=== PATIENT | male | born 1975 | race Caucasian/White ===

== ENCOUNTER 2017-11-30 14:22 | Emergency (ER) | payer SELFPAY ==
[2017-11-30] VITALS (14 sets, daily range): BP systolic 109–141; BP diastolic 69–87; PULSE 66–88; RESP 11–19; TEMP 36.2; O2SAT 94–100; BMI 23.9
--- NOTE | 2017-11-30 14:31 | DI.RAD.S_ITS ---
PROCEDURE: XR SHOULDER RT MIN 2V INDICATIONS: history of right shoulder dislocation TECHNIQUE: 2 views of the shoulder were acquired. COMPARISON: None. FINDINGS: Bones: There is anterior-inferior dislocation glenohumeral joint. No gross acute fracture is seen. No suspicious bony lesions. Visualized ribs appear intact. Soft tissues: No suspicious soft tissue calcifications. IMPRESSION: Anterior-inferior dislocation at the glenohumeral joint. Dictated by: Santo Antoine M.D. on 11/30/2017 at 15:16 Approved by: Santo Antoine M.D. on 11/30/2017 at 15:18
--- NOTE | 2017-11-30 16:56 | ED.UPPEXIN ---
HPI - Extremity Injury (Upper) <ROBERTO Toscano - Last Filed: 11/30/17 22:15> General Chief Complaint: Extremity Injury, Upper Stated Complaint: DISLOCATED RT SGOULDER Time Seen by Provider: 11/30/17 17:06 Source: patient Mode of arrival: ambulatory Limitations: no limitations History of Present Illness HPI narrative: 42-year-old male history of right shoulder dislocation is everyday smoker here for complaint of pain to his right shoulder. he states that he was throwing a boat came [place] went to throw his head on to the shore and when he threw his had felt pain to his right shoulder. He reports decreased ability to move the right shoulder this timeframe due to pain. He believes his shoulder is dislocated. He denies any direct trauma to the shoulder. He denies any other concerns or complaints. Related Data Allergies Allergy/AdvReac Type Severity Reaction Status Date / Time No Known Drug Allergies Allergy Verified 11/30/17 17:19 Review of Systems <ROBERTO Toscano - Last Filed: 11/30/17 22:15> Review of Systems All systems reviewed & are unremarkable except as noted in HPI and below Constitutional Denies chills, Denies fever(s), Denies lethargy and Denies weakness Eyes Denies change in vision, Denies eye discharge, Denies irritation and Denies loss of vision ENT Ears, Nose, Mouth, and Throat: Denies change in voice, Denies neck pain and Denies sore throat Cardiovascular Denies chest pain, Denies irregular heart rhythm, Denies lightheadedness, Denies palpitations, Denies dyspnea, Denies dyspnea on exertion and Denies orthopnea Respiratory Denies cough, Denies dyspnea, Denies dyspnea on exertion and Denies wheezing Gastrointestinal Gastrointestinal: Denies abdominal pain, Denies change in bowel habits, Denies diarrhea, Denies nausea and Denies vomiting Genitourinary Denies hematuria, Denies flank pain, Denies urinary incontinence and Denies urinary urgency Musculoskeletal Denies neck pain Comments: Right shoulder pain Neurologic Denies confusion, Denies loss of vision and Denies weakness Psychiatric Denies anxiety, Denies confusion, Denies depression, Denies homicidal ideation and Denies suicidal ideation Endocrine Denies palpitations Hematologic/Lymphatic Denies easy bruising Allergic/Immunologic Denies wheezing Exam <ROBERTO Toscano - Last Filed: 11/30/17 22:15> Initial Vital Signs Initial Vital Signs: Vital Signs Temperature 97.1 F L 11/30/17 14:25 Pulse Rate 69 11/30/17 14:25 Respiratory Rate 18 11/30/17 14:25 Blood Pressure 113/75 11/30/17 14:25 Pulse Oximetry 97 11/30/17 14:25 Const General: cooperative and well developed Nutritional Appearance: well nourished Orientation: alert, awake, oriented x3 and not confused HENWV Mouth: oral mucosae normal and moist mucous membranes Eyes General: appearance normal, both eyes and all related structures Conjunctivae: conjunctivae normal Sclera: sclerae normal Pupils: PERRL EOM: EOM intact bilaterally Resp Effort & Inspection: normal respiratory effort, able to speak in complete sentences, no respiratory distress and no use of accessory muscles Auscultation: clear to auscultation bilaterally, no rales, no rhonchi and no wheezes Cardio Rate: regular rate Rhythm: regular rhythm Heart Sounds: no click, no gallops, no murmurs and no rubs Pulses: normal peripheral pulses Skin General: no rashes or lesions noted, No jaundice and No petechiae Neuro General: alert, oriented x3, gait normal and no focal motor deficits Speech: speech normal Extrem Other: right shoulder a symmetric with the left shoulder. on palpation appears that humeral head is anterior/ medially dislocated. Distal sensation is intact. Distal pulses are intact. Distal range of motion is intact. <Tom Urena DO - Last Filed: 11/30/17 23:20> Initial Vital Signs Initial Vital Signs: Vital Signs Temperature 97.1 F L 11/30/17 14:25 Pulse Rate 69 11/30/17 14:25 Respiratory Rate 18 11/30/17 14:25 Blood Pressure 113/75 11/30/17 14:25 Pulse Oximetry 97 11/30/17 14:25 Procedures <ROBERTO Toscano - Last Filed: 11/30/17 22:15> Orthopedic Joint Reduction Joint #1: Time Out Performed: Yes Side: right Joint Reduction Location: shoulder Analgesia: procedural sedation Local Anesthesia: other anesthetic Shoulder Technique Used (if applicable): external rotation Post-reduction neuro exam: intact Post-reduction vascular: intact Post Reduction X-Ray Obtained: Yes Post Reduction X-Ray Results: reduced Splint Applied: Yes Patient Tolerated Procedure: Well Course <ROBERTO Toscano - Last Filed: 11/30/17 22:15> Orders Ordered: ED Orders 11/30/17 14:31 XR shoulder RT min 2V Stat 11/30/17 19:46 XR shoulder RT min 2V Stat Discontinued Medications Hydromorphone HCl (Dilaudid) 1 mg IV NOW ONE Stop: 11/30/17 17:11 Last Admin: 11/30/17 17:23 Dose: 1 mg Hydromorphone HCl (Dilaudid) 1 mg IV NOW ONE Stop: 11/30/17 18:23 Last Admin: 11/30/17 18:54 Dose: 1 mg Lorazepam (Ativan) 1 mg IV NOW ONE Stop: 11/30/17 17:11 Last Admin: 11/30/17 17:23 Dose: 1 mg Ondansetron HCl (Zofran) 4 mg IV NOW ONE Stop: 11/30/17 17:28 Last Admin: 11/30/17 18:54 Dose: 4 mg Propofol (Diprivan) 140 mg IV NOW ONE Stop: 11/30/17 19:48 Last Admin: 11/30/17 19:51 Dose: 140 mg Vital Signs - 8 hr 11/30/17 17:40 11/30/17 18:52 11/30/17 19:54 Pulse Rate 81 78 88 Respiratory Rate 19 16 15 Blood Pressure Blood Pressure [Left Arm] 122/87 141/75 H Pulse Oximetry 94 97 11/30/17 22:05 Pulse Rate 68 Respiratory Rate 12 Blood Pressure 128/73 Blood Pressure [Left Arm] Pulse Oximetry 95 <Tom Urena DO - Last Filed: 11/30/17 23:20> Orders Ordered: ED Orders 11/30/17 14:31 XR shoulder RT min 2V Stat 11/30/17 19:46 XR shoulder RT min 2V Stat Discontinued Medications Hydromorphone HCl (Dilaudid) 1 mg IV NOW ONE Stop: 11/30/17 17:11 Last Admin: 11/30/17 17:23 Dose: 1 mg Hydromorphone HCl (Dilaudid) 1 mg IV NOW ONE Stop: 11/30/17 18:23 Last Admin: 11/30/17 18:54 Dose: 1 mg Lorazepam (Ativan) 1 mg IV NOW ONE Stop: 11/30/17 17:11 Last Admin: 11/30/17 17:23 Dose: 1 mg Ondansetron HCl (Zofran) 4 mg IV NOW ONE Stop: 11/30/17 17:28 Last Admin: 11/30/17 18:54 Dose: 4 mg Propofol (Diprivan) 140 mg IV NOW ONE Stop: 11/30/17 19:48 Last Admin: 11/30/17 19:51 Dose: 140 mg Vital Signs - 8 hr 11/30/17 17:40 11/30/17 18:52 11/30/17 19:54 Pulse Rate 81 78 88 Respiratory Rate 19 16 15 Blood Pressure Blood Pressure [Left Arm] 122/87 141/75 H Pulse Oximetry 94 97 11/30/17 22:05 Pulse Rate 68 Respiratory Rate 12 Blood Pressure 128/73 Blood Pressure [Left Arm] Pulse Oximetry 95 MDM - Extremity Injury (Upper) <ROBERTO Toscano - Last Filed: 11/30/17 22:15> Imaging Data Post reduction right shoulder : Radiologist's impression: [place] [address] XRay Report Signed Patient: Kartik ConklinMR#: [id number] : 1975Acct:[id number] Age/Sex: 42 / MDate of Service: 11/30/17 Loc: Accession Number: [id number] Procedure: XR shoulder RT min 2V Ordering Provider: Dustin Edward PROCEDURE: XR SHOULDER RT MIN 2V INDICATIONS: post reduction film please. TECHNIQUE: 2 views of the shoulder were acquired. COMPARISON: [facility], , XR SHOULDER RT MIN 2V, 11/30/2017, 14:39. FINDINGS: Bones: Interval reduction of the previously described right anterior inferior shoulder dislocation, with the right glenohumeral joint now anatomic in alignment. No acute fracture identified. Soft tissues: No suspicious soft tissue calcifications. IMPRESSION: Interval reduction of the right anterior-inferior shoulder dislocation, with the right glenohumeral joint now in anatomic alignment. No acute shoulder fracture identified. Dictated by: Suman Burnette M.D. on 11/30/2017 at 21:44 Approved by: Suman Burnette M.D. on 11/30/2017 at 21:47 right shoulder: Radiologist's impression: [address] [address] XRay Report Signed Patient: Kartik Conklin#: [id number] : 1975Acct:[id number] Age/Sex: 42 / MDate of Service: 11/30/17 Loc: ED Accession Number: [id number] Procedure: XR shoulder RT min 2V Ordering Provider: Dustin Edward PROCEDURE: XR SHOULDER RT MIN 2V INDICATIONS: history of right shoulder dislocation TECHNIQUE: 2 views of the shoulder were acquired. COMPARISON: None. FINDINGS: Bones: There is anterior-inferior dislocation glenohumeral joint. No gross acute fracture is seen. No suspicious bony lesions. Visualized ribs appear intact. Soft tissues: No suspicious soft tissue calcifications. IMPRESSION: Anterior-inferior dislocation at the glenohumeral joint. Dictated by: Santo Antoine M.D. on 11/30/2017 at 15:16 Approved by: Santo Antoine M.D. on 11/30/2017 at 15:18 [facility] Narrative Medical decision making narrative: X-ray of right shoulder was obtained and shows anterior dislocation of the right shoulder. Attempted shoulder manipulation with Dilaudid and Ativan given was able to get shoulder to reduce. Dr urena Provided sedation via propofol and was able to reduce the shoulder using external rotation and traction. x-ray of the shoulder post reduction shows successful reduction. Patient states feels much better. Patient tolerated procedure well. patient is placed in splint for comfort and support. [id number] ibuprofen as needed for any discomfort. Follow up with primary care provider. Return emergency room for worsening symptoms. Discharge Plan Departure Patient Disposition: Home Clinical Impression: Anterior shoulder dislocation Discharge Date/Time: 11/30/17 22:05 Interventions: ED Discharge Assessment Last Done: 11/30/17 22:05 Instructions: DI for Shoulder Dislocation Activity Restrictions/Additional Instructions: initial x-ray indicated shoulder dislocation. Shoulder was reduced and was put back into the socket. Repeat x-ray shows that shoulder is back in place properly. Use [id number] Tylenol or Motrin as needed for any discomfort. Wear splint for comfort and support for 1 week. Follow up with her primary care provider next week for re-evaluation. For any worsening symptoms return to the emergency room. Rest area. Referrals: [facility] [Provider Group] <Tom [place], DO - Last Filed: 11/30/17 23:20> Cosign ED Attending Mikelature Attestation: I was immediately available in the department for consultation. Documentation has been reviewed. I agree with assessment and plan.
[2017-11-30] MEDS: LORazepam 2 MG/ML SYRINGE 1 MG IV (17:23)
[2017-11-30] MEDS: HYDROMORPHONE 1 MG INJ IV ×2 (17:23→18:54)
--- NOTE | 2017-11-30 17:38 | PC.NURSE ---
rt shoulder pain after threw my hat like a frisbee, obvious deformity, reports history of dislocation to same ext >10yrs ago, distal cms intact
[2017-11-30] MEDS: ONDANSETRON 4 MG/2 ML INJ IV (18:54)
--- NOTE | 2017-11-30 19:46 | DI.RAD.S_ITS ---
PROCEDURE: XR SHOULDER RT MIN 2V INDICATIONS: post reduction film please. TECHNIQUE: 2 views of the shoulder were acquired. COMPARISON: [facility], , XR SHOULDER RT MIN 2V, 11/30/2017, 14:39. FINDINGS: Bones: Interval reduction of the previously described right anterior inferior shoulder dislocation, with the right glenohumeral joint now anatomic in alignment. No acute fracture identified. Soft tissues: No suspicious soft tissue calcifications. IMPRESSION: Interval reduction of the right anterior-inferior shoulder dislocation, with the right glenohumeral joint now in anatomic alignment. No acute shoulder fracture identified. Dictated by: Suman Burnette M.D. on 11/30/2017 at 21:44 Approved by: Suman Burnette M.D. on 11/30/2017 at 21:47
[2017-11-30] MEDS: PROPOFOL 200 MG/20 ML VIAL 140 MG IV (19:51)
== END 2017-11-30 22:05 | disposition home or self-care (01) ==
PROVIDERS: Emergency Provider Nurse Practitioner Family
DX: S43.016A Anterior dislocation of unspecified humerus, initial encounter (principal); X50.9XXA Other and unspecified overexertion or strenuous movements or postures, initial encounter; Y93.16 Activity, rowing, canoeing, kayaking, rafting and tubing
CPT/HCPCS: 23655; 73030; 94770; 96374; 96375; 96376; 99152; 99284; 99285; J1170; J2060; J2405; J2704

== ENCOUNTER 2021-05-13 14:28 | Emergency (ER) | payer OTHER, SELFPAY ==
[2021-05-13 14:25] VITALS: BP 124/81; PULSE 110; RESP 24; TEMP 36.6; O2SAT 100
--- NOTE | 2021-05-13 14:51 | PC.NURSE ---
unable to doppler or palpate a left dorsalis pedis pulse. able to palpate a left posterior tibial pulse able to palpate a right dorsalis pedis pulse
--- NOTE | 2021-05-13 15:04 | ED.SKABFB ---
HPI - Skin/Abscess/Foreign Bdy General Chief complaint: Skin/Abscess/Foreign Body Stated complaint: arterial wound controlled with pressure Time Seen by Provider: 05/13/21 14:41 Source: patient and EMS Mode of arrival: EMS History of Present Illness HPI narrative: Patient is a 46-year-old male who presents with wound to his left leg. It was squirting blood and bleeding quite a lot. EMS reports that they put tourniquet on a pressure dressing. Patient states he has been cleaning water out of a basement he felt a prick on his leg he is not sure what it was and then felt that his leg was wet. Apparently a lot of blood loss at the scene. Related Data Allergies Allergy/AdvReac Type Severity Reaction Status Date / Time No Known Drug Allergies Allergy Verified 11/30/17 17:19 Review of Systems Review of Systems Narrative: GENERAL: Denies chills,fever HEENT: Denies throat pain RESPIRATORY: Denies dyspnea, cough, wheezing CARDIOVASCULAR: Denies chest pain, palpitations GASTROINTESTINAL: Denies nausea, vomiting MUSCULOSKELETAL: Denies extremity pain, injury SKIN: See HPI NEUROLOGIC: Denies weakness, dizziness, headache, numbness 8 point review of systems is negative except for those stated above and HPI Patient History Social History Smoking Status: Current every day smoker Smoking Status: Current every day smoker alcohol intake frequency: 0-2 drinks per day Substance Use Type: does not use Exam Initial Vital Signs Initial Vital Signs: Vital Signs Temperature 98 F 05/13/21 14:25 Pulse Rate 110 H 05/13/21 14:25 Respiratory Rate 24 05/13/21 14:25 Blood Pressure 124/81 05/13/21 14:25 Pulse Oximetry 100 05/13/21 14:25 GENERAL: Well-appearing, well-nourished and in no acute distress. CARDIOVASCULAR: peripheral pulses in tact, cap refill <2 sec RESPIRATORY: No respiratory distress, speaks in full sentences without difficulty EXTREMITIES: Normal range of motion, no clubbing or edema. Neurovascularly intact Decreased pulse left foot NEUROLOGICAL: Cranial nerves II through XII grossly intact. Normal gait and speech. SKIN: Puncture wound noted left leg lateral calf, pressure dressing removed blood shot across the room to the wall, dark blood, tourniquet removed blood no longer pulsatile but quite excessive bleeding Foot also appears wet [facility] Procedures Laceration Repair Laceration 1: Size (cm): 0.25 Description: other (pinpoint) Local Anesthetic: lidocaine 1% and with epi Amount of anesthesia used (mL): 5 Skin layer closed with: nylon Size (cm): 4-0 Number of sutures: 1 Course Vital Signs Vital signs: Vital Signs - 8 hr 05/13/21 14:25 05/13/21 15:15 Temperature 98 F Pulse Rate 110 H 98 H Respiratory Rate 24 18 Blood Pressure 124/81 138/87 Pulse Oximetry 100 95 MDM - Skin/Abscess/Foreign Bdy MDM Narrative Medical decision making narrative: Patient had a very small puncture wound with quite a bit of bleeding. He was controlled with lidocaine with epi and suture. Tourniquet was removed than 10 minutes of arrival to the emergency department. Before discharge I was able to palpate a pulse in his left lower extremity without any difficulty and it was marked. At this time no need for any further imaging he has good peripheral circulation. Discharge Plan Departure Patient Disposition: Home Clinical Impression: Laceration Activity Restrictions/Additional Instructions: *You have been diagnosed with left leg laceration *What to do: Have your sutures removed in about 5 days. Keep clean and dry with soap and water Please try to dry her feet out said they do not get infected *Continue to take medications as directed *Follow up with your primary care provider in 2-3 days or call [phone] *Return to ER if you should have increasing redness returning of bleeding or such as or any new, worsening or concerning symptoms
[2021-05-13] MEDS: LIDOCAINE 1% W/EPI 30 ML (15:10)
[2021-05-13 15:15] VITALS: BP 138/87; PULSE 98; RESP 18; O2SAT 95
== END 2021-05-13 15:37 | disposition home or self-care (01) ==
PROVIDERS: Emergency Provider Emergency Medicine
DX: S81.812A Laceration without foreign body, left lower leg, initial encounter (principal); W45.8XXA Other foreign body or object entering through skin, initial encounter; Y99.0 Civilian activity done for income or pay
CPT/HCPCS: 12001; 99281; 99283

== ENCOUNTER 2021-11-04 13:24 | Emergency (ER) | payer SELFPAY ==
[2021-11-04 13:29] VITALS: BP 140/86; PULSE 108; RESP 22; TEMP 37; O2SAT 97; BMI 27.9
--- NOTE | 2021-11-04 13:38 | DI.RAD.S_ITS ---
PROCEDURE: XR CHEST 2V INDICATIONS: shortness of breath TECHNIQUE: 2 views of the chest were acquired. COMPARISON: None. FINDINGS: Surgical changes and devices: None. Lungs and pleura: Lungs are clear. No pleural effusions or pneumothorax. Mediastinum: Mediastinal contours are normal. Heart size is normal. Bones and chest wall: No suspicious bony abnormalities. Soft tissues appear unremarkable. IMPRESSION: No acute cardiopulmonary findings. Dictated by: Ngozi Jay M.D. on 11/04/2021 at 14:07 Approved by: Ngozi Jay M.D. on 11/04/2021 at 14:07
--- NOTE | 2021-11-04 14:23 | ED.GENADULT ---
HPI - General Adult General Chief complaint: Shortness of Breath/Dyspnea Stated complaint: Fell 2 days ago, SOB and right rib pain Time Seen by Provider: 11/04/21 13:56 Source: patient Mode of arrival: Ambulatory History of Present Illness HPI narrative: Patient is a 46-year-old male who is here for evaluation of right-sided rib pain causing him to have shortness of breath. He states he was walking down a hill in a local park a couple days ago and he fell landing on his right ribs. He is had pain in this area since then. He denies any fevers. No prior injuries. He reports no other injuries from the fall. Discomfort is reproducible with palpation on his right posterior lateral ribs. Related Data Previous Rx's Medication Instructions Recorded hydrocodone 5 mg-acetaminophen 325 1 tab PO Q4-6H PRN pain #10 tabs 11/04/21 mg tablet Allergies Allergy/AdvReac Type Severity Reaction Status Date / Time bee venom protein (honey bee) Allergy Verified 11/04/21 13:36 Review of Systems Constitutional Constitutional: Reports system reviewed and no additional complaints, except as documented Respiratory Respiratory: Reports as per HPI and Reports system reviewed and no additional complaints, except as documented Musculoskeletal Musculoskeletal: Reports system reviewed and no additional complaints, except as documented and Reports as per HPI Integumentary/Breasts Skin/Breast: Reports system reviewed and no additional complaints, except as documented and Reports as per HPI Hematologic/Lymphatic On Anticoagulants: No Patient History Medical History Patient denies medical problems Social History Smoking Status: Current every day smoker Smoking Status: Current every day smoker tobacco type: cigarettes alcohol intake frequency: holidays/special occasions only Substance Use Type: does not use Exam Initial Vital Signs Initial Vital Signs: Vital Signs Temperature 98.6 F 11/04/21 13:29 Pulse Rate 108 H 11/04/21 13:29 Respiratory Rate 22 11/04/21 13:29 Blood Pressure 140/86 11/04/21 13:29 Pulse Oximetry 97 11/04/21 13:29 Oxygen Delivery Method 11/04/21 13:29 Const General: cooperative and healthy appearing HENNY Head: normal to inspection and normocephalic Chest Other: Right posterior lateral rib discomfort without crepitus. Resp Effort & Inspection: normal respiratory effort Auscultation: clear to auscultation bilaterally Cardio Rate: regular rate Rhythm: regular rhythm Skin Other: No bruising noted Neuro General: patient alert, patient awake, patient oriented x3 and moves all extremities Extrem General: normal to inspection and capillary refill normal Course Orders Ordered: ED Orders 11/04/21 13:38 XR chest 2V Stat Complete Blood Count AUTO DIFF Stat Comprehensive Metabolic Panel Stat Lactate (Lactic Acid) Stat 11/04/21 13:53 EKG-12 Lead Stat Vital Signs Vital signs: Vital Signs - 8 hr 11/04/21 13:29 Temperature 98.6 F Pulse Rate 108 H Respiratory Rate 22 Blood Pressure 140/86 Pulse Oximetry 97 Oxygen Delivery Method Room Air Medical Decision Making Imaging Data Chest x-ray: Radiologist's Impression: [address] [address] XRay Report Signed Patient: Kartik Conklin MR#: [id number] : 1975 Acct:[id number] Age/Sex: 46 / M Date of Service: 11/04/21 Loc: ED Accession Number: [id number] ?? Procedure: XR chest 2V Ordering Provider: Sunday Nielsen D.O. PROCEDURE:? XR CHEST 2V ? INDICATIONS:? shortness of breath ? TECHNIQUE:? 2 views of the chest were acquired.? ? COMPARISON:? None. ? FINDINGS:? ? Surgical changes and devices:? None.? ? Lungs and pleura:? Lungs are clear.? No pleural effusions or pneumothorax.? ? Mediastinum:? Mediastinal contours are normal.? Heart size is normal.? ? Bones and chest wall:? No suspicious bony abnormalities.? Soft tissues appear unremarkable.? ? IMPRESSION:? No acute cardiopulmonary findings. ? ? Dictated by: Ngozi Jay M.D. on 11/04/2021 at 14:07 ? ? Approved by: Ngozi Jay M.D. on 11/04/2021 at 14:07? ECG Data Attestation: I personally reviewed and interpreted this ECG as follows: Interpretation: Sinus rhythm Ventricular rate 82 Normal axis Normal QRS Normal QTC No ST T wave changes MDM Narrative Medical decision making narrative: No respiratory distress. The chest x-ray shows no underlying lung pathology. He is no crepitus however he does have relatively pinpoint tenderness to palpation on the right posterior ribs. I suspect either a rib contusion/fracture. I did discuss this with him. No further radiologic studies noted. No indication for antibiotics. No indication for admission to the hospital. Was sent home with symptom control. We did discuss the importance of deep breathing and coughing. He was given return precautions. He expressed understanding and agreement. Discharge Plan Departure Patient Disposition: Home Clinical Impression: Contusion of rib on right side Instructions: DI for Rib Contusion Activity Restrictions/Additional Instructions: It is important that you occasionally take deep breaths like we discussed. It is important that you establish care with a primary doctor. You can contact the call center here at [phone]. [facility]. Please take them as needed. Return to the emergency department for any new or worsening symptoms. Prescriptions: New hydrocodone-acetaminophen 5-325 mg tablet 1 tab PO Q4-6H PRN (Reason: pain) Qty: 10 0RF Visit Report Forms: Patient Portal/API
[2021-11-04 14:32] VITALS: BP 135/85; PULSE 70; O2SAT 99
== END 2021-11-04 14:33 | disposition home or self-care (01) ==
PROVIDERS: Emergency Provider Emergency Medicine
DX: S20.211A Contusion of right front wall of thorax, initial encounter (principal); W19.XXXA Unspecified fall, initial encounter; R06.02 Shortness of breath
CPT/HCPCS: 36415; 71046; 93005; 99283; 99284

== ENCOUNTER 2022-02-06 11:37 | Emergency (ER) | payer OTHER, MEDICAID, SELFPAY ==
[2022-02-06] VITALS (10 sets, daily range): BP systolic 118–132; BP diastolic 61–84; PULSE 100–125; RESP 24; TEMP 37.2; O2SAT 96–100; BMI 28.5
--- NOTE | 2022-02-06 15:45 | ED.EXTPRO ---
HPI - Extremity Problem General Chief complaint: Extremity Problem,Nontraumatic Stated complaint: pain in both legs x3 months Time Seen by Provider: 02/06/22 14:25 Source: patient Mode of arrival: Ambulatory History of Present Illness HPI Narrative: Patient is a 47-year-old male who is here for evaluation of pain in both of his legs. He states that his symptoms started approximately 3 months ago after he sustained a fall and hurt his ribs. He did have some abrasions to his legs. He states that until about 2 weeks ago his leg seemed to be okay however over the past 2 weeks they have grown in size. Become more painful. Are now crusting. No fevers. Has not tried anything for his symptoms. He states that he is showering on a regular basis. He does live with his parents. He denies drugs or alcohol. He does smoke cigarettes. He does not have a primary care doctor. Related Data Previous Rx's Medication Instructions Recorded hydrocodone 5 mg-acetaminophen 325 1 tab PO Q4-6H PRN pain #10 tabs 11/04/21 mg tablet cephalexin 500 mg capsule 500 mg PO QID 7 days #28 caps 02/06/22 Allergies Allergy/AdvReac Type Severity Reaction Status Date / Time bee venom protein (honey bee) Allergy Verified 02/06/22 11:58 Review of Systems Constitutional Constitutional: Reports system reviewed and no additional complaints, except as documented Musculoskeletal Musculoskeletal: Reports system reviewed and no additional complaints, except as documented Integumentary/Breasts Skin/Breast: Reports system reviewed and no additional complaints, except as documented Neurologic Neurologic: Reports system reviewed and no additional complaints, except as documented Hematologic/Lymphatic On Anticoagulants: No Patient History Medical History Patient denies medical problems Social History Smoking Status: Current every day smoker Smoking Status: Current every day smoker tobacco type: cigarettes alcohol intake frequency: other Substance Use Type: does not use Exam Initial Vital Signs Initial Vital Signs: Vital Signs Temperature 98.9 F 02/06/22 11:58 Pulse Rate 107 H 02/06/22 11:58 Respiratory Rate 24 02/06/22 11:58 Blood Pressure 128/61 02/06/22 11:58 Pulse Oximetry 99 02/06/22 11:58 Oxygen Delivery Method 02/06/22 11:[address] [facility] Head: normal to inspection and normocephalic Resp Effort & Inspection: normal respiratory effort Cardio Rate: regular rate Pulses: dorsalis pedis present bilaterally Skin Other: Patient has crusting and ulcerations to bilateral lower extremities from the knees to the toes. No erythema. Neuro General: patient alert, patient awake and moves all extremities Extrem Other: Swelling to bilateral lower extremities. Course Orders Ordered: ED Orders 02/06/22 15:45 Wound Culture and Gram Stain Stat Wound Culture and Gram Stain Stat 02/06/22 15:55 Blood Culture Stat C-Reactive Protein Quant Stat Complete Blood Count AUTO DIFF Stat Comprehensive Metabolic Panel Stat Erythrocyte Sedimentation Rate Stat Lactate (Lactic Acid) Stat Lipase Stat Magnesium Stat Procalcitonin Stat Discontinued Medications Hydromorphone HCl (Hydromorphone 0.5 Mg Inj) 0.5 mg IV NOW ONE Stop: 02/06/22 16:43 Last Admin: 02/06/22 16:57 Dose: 0.5 mg Documented By: HARRIET Hydromorphone HCl (Hydromorphone 1 Mg Inj) 1 mg IV NOW ONE Stop: 02/06/22 17:42 Last Admin: 02/06/22 17:44 Dose: 1 mg Documented By: TENA Vancomycin HCl (Vancomycin) 1,000 mg in 200 mls @ 200 mls/hr IV NOW ONE Stop: 02/06/22 16:46 Last Infusion: 02/06/22 18:12 Dose: 0 mls/hr Documented By: Admin: 02/06/22 16:58 Dose: 200 mls/hr Documented By: HARRIET Vital Signs Vital signs: Vital Signs - 8 hr 02/06/22 11:58 02/06/22 15:24 02/06/22 15:23 Temperature 98.9 F Pulse Rate 107 H 112 H Respiratory Rate 24 Blood Pressure 128/61 125/74 125/74 Pulse Oximetry 99 100 Oxygen Delivery Method Room Air Room Air 02/06/22 15:23 02/06/22 15:30 02/06/22 15:30 Temperature Pulse Rate 114 H 100 H Respiratory Rate Blood Pressure 123/73 Pulse Oximetry 100 100 Oxygen Delivery Method Room Air 02/06/22 16:00 02/06/22 16:00 02/06/22 16:30 Temperature Pulse Rate 103 H Respiratory Rate Blood Pressure 118/84 119/71 Pulse Oximetry 100 Oxygen Delivery Method 02/06/22 16:30 02/06/22 17:00 02/06/22 17:05 Temperature Pulse Rate 110 H 104 H 107 H Respiratory Rate Blood Pressure Pulse Oximetry 100 100 100 Oxygen Delivery Method 02/06/22 17:05 02/06/22 18:20 02/06/22 18:21 Temperature Pulse Rate 125 H 122 H Respiratory Rate Blood Pressure 132/71 Pulse Oximetry 97 96 Oxygen Delivery Method Room Air 02/06/22 18:21 Temperature Pulse Rate Respiratory Rate Blood Pressure 132/83 Pulse Oximetry Oxygen Delivery Method MDM - Extremity (Nontraumatic) Lab Data Result diagrams: 02/06/22 15:55 02/06/22 15:55 Labs: Lab Results 02/06/22 02/06/22 02/06/22 Range/Units 15:55 15:55 15:55 WBC 5.3 (4.5-11.0) X10^3/uL RBC 4.43 L (4.5-5.9) X10^6/uL Hgb 13.8 (13.5-17.5) g/dL Hct 40.0 L (41-53) % MCV 90.3 (80-100) fL MCH 31.1 (26-34) PG MCHC 34.4 (30-36) % RDW 14.6 (11.6-14.8) % Plt Count 730 H (150-400) X10^3/uL Neut % (Auto) 66.5 (50-75) % Lymph % (Auto) 22.6 L (25-40) % [place] % (Auto) 8.0 (3-14) % Eos % (Auto) 2.0 (2-4) % Baso % (Auto) 0.9 (0-2) % Neut # (Auto) 3600 (9110-0412) /uL Lymph # (Auto) 1200 (7591-5040) /uL [place] # (Auto) 400 (0-900) /uL Eos # (Auto) 100 (0-450) /uL Baso # (Auto) 0 (0-100) /uL ESR 69 H (0-15) MM/HR Sodium 139 (137-145) mmol/L Potassium 3.8 (3.4-5.1) mmol/L Chloride 97 L (98-107) mmol/L Carbon Dioxide 30 (22-32) mmol/L BUN 7 L (9-20) mg/dL Creatinine 0.48 L (0.66-1.25) mg/dL Estimated GFR > 60 (>60) mL/min BUN/Creatinine Ratio 14.6 (6-22) Glucose 94 (70-100) mg/dL Lactate (0.7-2.1) mmol/L Calcium 9.7 (8.4-10.2) mg/dL Magnesium (1.6-2.3) mg/dL Total Bilirubin 1.0 (0.2-1.3) mg/dL AST 22 (17-59) IU/L ALT 20 (<50) IU/L Alkaline Phosphatase 117 (38-126) U/L C-Reactive Protein (<1.0) mg/dL Total Protein 8.6 H (6.3-8.2) g/dL Albumin 4.1 (3.5-5.0) g/dL Globulin 4.5 H (1.7-4.1) g/dL Albumin/Globulin Ratio 0.9 L (1.0-2.8) Lipase (23-300) U/L Procalcitonin (<0.5) ng/mL 02/06/22 02/06/22 Range/Units 15:55 15:55 WBC (4.5-11.0) X10^3/uL RBC (4.5-5.9) X10^6/uL Hgb (13.5-17.5) g/dL Hct (41-53) % MCV (80-100) fL MCH (26-34) PG MCHC (30-36) % RDW (11.6-14.8) % Plt Count (150-400) X10^3/uL Neut % (Auto) (50-75) % Lymph % (Auto) (25-40) % [place] % (Auto) (3-14) % Eos % (Auto) (2-4) % Baso % (Auto) (0-2) % Neut # (Auto) (2893-6484) /uL Lymph # (Auto) (8977-7493) /uL [place] # (Auto) (0-900) /uL Eos # (Auto) (0-450) /uL Baso # (Auto) (0-100) /uL ESR (0-15) MM/HR Sodium (137-145) mmol/L Potassium (3.4-5.1) mmol/L Chloride (98-107) mmol/L Carbon Dioxide (22-32) mmol/L BUN (9-20) mg/dL Creatinine (0.66-1.25) mg/dL Estimated GFR (>60) mL/min BUN/Creatinine Ratio (6-22) Glucose (70-100) mg/dL Lactate 1.0 (0.7-2.1) mmol/L Calcium (8.4-10.2) mg/dL Magnesium 1.9 (1.6-2.3) mg/dL Total Bilirubin (0.2-1.3) mg/dL AST (17-59) IU/L ALT (<50) IU/L Alkaline Phosphatase (38-126) U/L C-Reactive Protein 2.5 H (<1.0) mg/dL Total Protein (6.3-8.2) g/dL Albumin (3.5-5.0) g/dL Globulin (1.7-4.1) g/dL Albumin/Globulin Ratio (1.0-2.8) Lipase 34 (23-300) U/L Procalcitonin 2.96 H (<0.5) ng/mL MDM Narrative Medical decision making narrative: Patient is afebrile. No leukocytosis. Does have an elevated ESR and CRP. Lactate is normal. Does have an elevated procalcitonin. He is vascularly intact. Low suspicion for fracture. No indication for x-rays. Considered ultrasound however I have low suspicion that he has bilateral lower extremity DVTs. He is extensive crusting and ulcerations to both of his lower extremities. The crusting is very thick. He states that he has been taking showers however feel that the oozing/purulent discharge from his legs have just been building up. We spent an extensive amount of time cleaning his legs. We were able to remove much of the crusting however not all of it. He tolerated this relatively well. The underlying skin does show ulcerations without much erythema. Cultures were obtained. Since his symptoms have been going on for many weeks/months the plan will be is to send him home on oral antibiotics. He will do wet-to-dry dressings at home. Will have him return to the emergency department tomorrow during my shift so that we can re-evaluate his legs. He expressed understanding agreement with plan. Discharge Plan Departure Patient Disposition: Home Clinical Impression: Skin ulcer Instructions: DI for Wound Infection Activity Restrictions/Additional Instructions: A prescription for antibiotics was sent to the pharmacy of your choice. Please start taking them as directed. Please do the wet-to-dry dressings as we instructed you. I also recommend that you follow-up tomorrow in the emergency department for a re-evaluation of her legs. A referral for wound care was placed today. You can contact them at [phone]. Prescriptions: New cephalexin 500 mg capsule 500 mg PO QID 7 Days Qty: 28 0RF No Action hydrocodone-acetaminophen 5-325 mg tablet 1 tab PO Q4-6H PRN (Reason: pain) Qty: 10 0RF Referrals: Miscellaneous,Doctor, [Primary Care Provider] -
[2022-02-06 16:30] LABS: Add Manual Diff / Slide Review NO; Basophils Absolute Auto 0 /uL (0-100); Basophils Percent Auto 0.9 % (0-2); Eosinophils Absolute Auto 100 /uL (0-450); Hemoglobin 13.8 g/dL (13.5-17.5); Lymphocytes Absolute Auto 1200 /uL (1100-4500); Lymphocytes Percent Auto 22.6 % (25-40); Mean Corpuscular HGB Conc 34.4 % (30-36); Mean Corpuscular Hemoglobin 31.1 PG (26-34); Mean Corpuscular Volume 90.3 fL (80-100); Monocytes Absolute Auto 400 /uL (0-900); Neutrophils Absolute Auto 3600 /uL (1500-7000); Neutrophils Percent Auto 66.5 % (50-75); Platelet Count 730 X10^3/uL (150-400); Red Blood Cell Count 4.43 X10^6/uL (4.5-5.9); Red Cell Distribution Width 14.6 % (11.6-14.8); White Blood Cell Count 5.3 X10^3/uL (4.5-11.0)
[2022-02-06 16:43] LABS: Lipase 34 U/L (23-300); Magnesium 1.9 mg/dL (1.6-2.3)
[2022-02-06 16:45] LABS: Alanine Aminotransferase 20 IU/L (<50); Albumin 4.1 g/dL (3.5-5.0); Albumin Globulin Ratio 0.9 (1.0-2.8); Alkaline Phosphatase 117 U/L (38-126); Aspartate Aminotransferase 22 IU/L (17-59); BUN Creatinine Ratio 14.6 (6-22); Blood Urea Nitrogen 7 mg/dL (9-20); Calcium 9.7 mg/dL (8.4-10.2); Carbon Dioxide 30 mmol/L (22-32); Chloride 97 mmol/L (98-107); Estimated Glomerular Filt Rate > 60 mL/min (>60); Globulin 4.5 g/dL (1.7-4.1); Glucose 94 mg/dL (70-100); HEMOLYSIS < 15 (0-50); Potassium 3.8 mmol/L (3.4-5.1); Sodium 139 mmol/L (137-145); Total Protein 8.6 g/dL (6.3-8.2)
[2022-02-06] MEDS: HYDROMORPHONE 0.5 MG INJ IV (16:57)
[2022-02-06] MEDS: VANCOMYCIN 1,000 MG/200 ML PIGGYBACK 200 MG IV (16:58)
[2022-02-06 16:59] LABS: Erythrocyte Sedimentation Rate 69 MM/HR (0-15)
[2022-02-06 17:01] LABS: Procalcitonin 2.96 ng/mL (<0.5)
--- NOTE | 2022-02-06 17:01 | PC.NURSE ---
Attempted multiple times to get 2nd blood culture, unable to obtain. Pt refuses another draw. Dr. Nielsen aware. Ok's to give abx now.
[2022-02-06 17:15] LABS: C-Reactive Protein Quant 2.5 mg/dL (<1.0)
--- NOTE | 2022-02-06 17:41 | PC.NURSE ---
16:[address] Nielsen that 3 attempts were made to complete the second set of blood cultures and that lab was called as well. Lab unable to collect at the moment. Dr. Nielsen said to start the vancomycin before second set of blood cultures was collected.
[2022-02-06] MEDS: HYDROMORPHONE 1 MG INJ IV (17:44)
--- NOTE | 2022-02-06 18:34 | PC.NURSE ---
Pt assisted in bathroom to wash bilateral lower legs, pt experienced intense pain during, breaks between sessions utilized until pt no longer able to tolerate. Sloughs of puss removed, Dr. Nielsen brought to bathroom to assess.
--- NOTE | 2022-02-06 19:03 | PC.NURSE ---
wet to dry dressing on magaly lower legs. wet curlex, dry curlex and lightly placed coban like material.
== END 2022-02-06 19:05 | disposition home or self-care (01) ==
PROVIDERS: Emergency Provider Emergency Medicine
DX: L97.929 Non-pressure chronic ulcer of unspecified part of left lower leg with unspecified severity (principal); L97.919 Non-pressure chronic ulcer of unspecified part of right lower leg with unspecified severity
CPT/HCPCS: 36415; 80053; 83605; 83690; 83735; 84145; 85025; 85651; 86140; 87040; 87070; 87077; 87147; 87186; 87205; 96365; 96375; 96376; 99284; J1170

== ENCOUNTER 2022-02-07 10:00 | Emergency (ER) | payer OTHER, MEDICAID, SELFPAY ==
--- NOTE | 2022-02-07 10:20 | ED_ITS ---
HPI - General Adult General Chief complaint: Extremity Problem,Nontraumatic Stated complaint: leg injury pt returning back from yesterday Time Seen by Provider: 02/07/22 10:03 Source: patient Mode of arrival: Wheelchair Limitations: no limitations History of Present Illness HPI narrative: Patient is a 47-year-old male. I evaluated him in the emergency department yesterday for bilateral lower extremity ulcerations. He was instructed to come back to the emergency department today. He states that he did fill his antibiotics. He has taken them as directed. He states he did sleep well last night. He states that he feels much better today than what he did yesterday. He has not changed bandages since yesterday. Related Data Previous Rx's Medication Instructions Recorded hydrocodone 5 mg-acetaminophen 325 1 tab PO Q4-6H PRN pain #10 tabs 11/04/21 mg tablet cephalexin 500 mg capsule 500 mg PO QID 7 days #28 caps 02/06/22 Allergies Allergy/AdvReac Type Severity Reaction Status Date / Time bee venom protein (honey bee) Allergy Verified 02/07/22 10:20 Review of Systems Constitutional Constitutional: Reports system reviewed and no additional complaints, except as documented Musculoskeletal Musculoskeletal: Reports system reviewed and no additional complaints, except as documented Integumentary/Breasts Skin/Breast: Reports system reviewed and no additional complaints, except as documented Neurologic Neurologic: Reports system reviewed and no additional complaints, except as documented Hematologic/Lymphatic On Anticoagulants: No Patient History Medical History Patient denies medical problems Social History Smoking Status: Current every day smoker Smoking Status: Current every day smoker tobacco type: cigarettes alcohol intake frequency: other Substance Use Type: does not use Exam Initial Vital Signs Initial Vital Signs: Vital Signs Temperature 98.0 F 02/07/22 10:21 Pulse Rate 121 H 02/07/22 10:21 Respiratory Rate 18 02/07/22 10:21 Blood Pressure 127/64 02/07/22 10:21 Pulse Oximetry 97 02/07/22 10:21 Oxygen Delivery Method 02/07/22 10:21 HENMT Head: normal to inspection Skin Other: The crusting on his lower extremities is much improved from yesterday. Quite a bit came off when we removed the dressings today. There is ulcerations on his legs. Neuro General: patient alert, patient awake and moves all extremities Extrem Other: Swelling and ulcerations to bilateral lower extremities. Course Orders Ordered: ED Orders 02/07/22 12:01 Consult to [employer] - Claims Coordinator Stat Discontinued Medications Bacitracin (Bacitracin 28 Gm Oint) 56 applic TOP NOW ONE Stop: 02/07/22 11:31 Last Admin: 02/07/22 11:24 Dose: 56 applic Documented By: YOLANDA Cephalexin HCl (Cephalexin 250 Mg Capsule) 500 mg PO NOW ONE Stop: 02/07/22 12:12 Last Admin: 02/07/22 12:19 Dose: 500 mg Documented By: BEST Hydromorphone HCl (Hydromorphone 1 Mg Inj) 1 mg IM NOW ONE Stop: 02/07/22 10:15 Last Admin: 02/07/22 11:25 Dose: Not Given Documented By: YOLANDA Hydromorphone HCl (Hydromorphone 1 Mg Inj) 1 mg IV NOW ONE Stop: 02/07/22 10:38 Last Admin: 02/07/22 10:45 Dose: 1 mg Documented By: YOLANDA Vancomycin HCl (Vancomycin) 1,000 mg in 200 mls @ 200 mls/hr IV NOW ONE Stop: 02/07/22 11:36 Last Infusion: 02/07/22 12:26 Dose: 0 mls/hr Documented By: Admin: 02/07/22 11:20 Dose: 200 mls/hr Documented By: YOLANDA Vital Signs Vital signs: Vital Signs - 8 hr 02/07/22 10:21 Temperature 98.0 F Pulse Rate 121 H Respiratory Rate 18 Blood Pressure 127/64 Pulse Oximetry 97 Oxygen Delivery Method Room Air Medical Decision Making MDM Narrative Medical decision making narrative: Patient's vital signs are unremarkable. He states that he actually feels much better today than what he did yesterday. He states he slept well last evening. He has not changed his bandages. We changed them today. Quite a bit more of the crusting purulent discharge came off of his legs. He was given another dose of vancomycin. He was seen by social work. He is now set up with insurance. Will not take effect until after the new year but he does have an appointment with a primary doctor in March. We also confirmed that wound care got the referral that was sent yesterday however they can not see him until Sunday. The patient is going to call to schedule this appointment. Because he has no [facility] follow-up I do feel the patient does need to return to the emergency department tomorrow for a re-evaluation. He has antibiotics at home. I once again do not feel the patient requires admission to the hospital. He was given return precautions. He expressed understanding and agreement. Discharge Plan Departure Patient Disposition: Home Clinical Impression: Skin ulcer Activity Restrictions/Additional Instructions: Please continue to take the antibiotics as directed. Contact the wound care clinic at the number that you were provided so that you can schedule a follow-up at the end of this week. I do recommend that you follow-up in the emergency department once again tomorrow so that we can re-evaluate your wounds. Prescriptions: No Action hydrocodone-acetaminophen 5-325 mg tablet 1 tab PO Q4-6H PRN (Reason: pain) Qty: 10 0RF cephalexin 500 mg capsule 500 mg PO QID 7 Days Qty: 28 0RF Referrals: Miscellaneous,Doctor, MD [Primary Care Provider] -
[2022-02-07 10:21] VITALS: BP 127/64; PULSE 121; RESP 18; TEMP 36.7; O2SAT 97
[2022-02-07] MEDS: HYDROMORPHONE 1 MG INJ IV (10:45)
[2022-02-07] MEDS: VANCOMYCIN 1,000 MG/200 ML PIGGYBACK 200 MG IV (11:20)
[2022-02-07] MEDS: BACITRACIN 28 GM OINT 56 APPLIC TOP (11:24)
--- NOTE | 2022-02-07 11:29 | PC.NURSE ---
Bilateral lower extremity skin ulcerations. Old dressings removed w/ green drainage, scabbed tissue removed. Noted significant granulation. Wounds cleansed w/ sterile normal saline. Skin debrieded as tolerated. Layer of bacitracin placed on skin w/ special padding of 4x4s to heels. wrapped w/ damp trinity roll followed by dry trinity roll then wrapped loosely w/ coban. + cap refill, CSM to toes. Continues to have significant edema but improved from previous visit. Pt tolerated well. Discussed nutrition. Pt appears underweight, unable to stand on scale for weight and prefers to sit in w/c. Discussed protein intake, good nutrition and need for increased calories. Pt tolerated well.
[2022-02-07] MEDS: cephALEXin 250 MG CAPSULE 500 MG PO (12:19)
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
[2022-02-07 16:58] VITALS: BP 130/65; PULSE 80; RESP 18; O2SAT 97
== END 2022-02-07 14:15 | disposition home or self-care (01) ==
PROVIDERS: Emergency Provider Emergency Medicine
DX: L97.929 Non-pressure chronic ulcer of unspecified part of left lower leg with unspecified severity (principal); L97.919 Non-pressure chronic ulcer of unspecified part of right lower leg with unspecified severity
CPT/HCPCS: 96365; 96375; 99284; J1170

== ENCOUNTER 2022-02-08 13:02 | Emergency (ER) | payer OTHER, MEDICAID, SELFPAY ==
[2022-02-08 13:06] VITALS: BP 128/66; PULSE 103; RESP 15; TEMP 37.3; O2SAT 95; BMI 28.3
[2022-02-08 14:57] VITALS: BP 124/62; PULSE 104; O2SAT 98
[2022-02-08 16:59] VITALS: BP 118/60; PULSE 114; O2SAT 100
--- NOTE | 2022-02-08 17:48 | ED_ITS ---
HPI - Recheck/Abnormal Lab/Rx General Chief Complaint: Recheck/Abnormal Lab/Rx Stated Complaint: F/U, Leg issues Time Seen by Provider: 02/08/22 17:33 Source: patient Mode of arrival: Wheelchair History of Present Illness HPI narrative: This is a 47-year-old gentleman who returns to the emergency department for a wound check and wound care with dressing change for his bilateral lower extremity ulcers with weeping wounds. His wound care appointment is in 2 days, he was instructed to come in today for evaluation, he is on cephalexin 500 mg q.i.d. x7 days, on 02/06/2022 wound cultures were obtained from bilateral lower extremities growing staph aureus and Gram-negative bacilli with sensitivity to follow, no sensitivity posted thus far. His blood cultures were negative for growth to date. Patient states that his pain during dressing changes is severe, these are supposed to be wet to dry and patient states that when the gauze gets dry it is itchy and painful. The last dressing change the gauze was not wet and patient was complaining about how it stuck to his wound. Patient denies worsening, states that he feels like his wounds are getting better. He has a new patient appointment with her primary care provider who does not remember the name of on March 07. He denies fevers, chills, he has been elevating his lower extremities but not as much as he should he states. He is ambulatory and getting around fairly well. Related Data Previous Rx's Medication Instructions Recorded hydrocodone 5 mg-acetaminophen 325 1 tab PO Q4-6H PRN pain #10 tabs 11/04/21 mg tablet cephalexin 500 mg capsule 500 mg PO QID 7 days #28 caps 02/06/22 hydrocodone 5 mg-acetaminophen 325 1 tab PO TID PRN pain for dressing 02/08/22 mg tablet changes #20 tabs oxycodone 5 mg tablet 5 mg PO Q8H PRN pain #20 tabs 02/08/22 Allergies Allergy/AdvReac Type Severity Reaction Status Date / Time acetaminophen Allergy Verified 02/08/22 13:06 bee venom protein (honey bee) Allergy Verified 02/07/22 10:20 Review of Systems Review of Systems ROS Unobtainable: All systems reviewed & are unremarkable except as noted in HPI and below Patient History Medical History Patient denies medical problems Social History Smoking Status: Current every day smoker Smoking Status: Current every day smoker tobacco type: cigarettes alcohol intake frequency: other Substance Use Type: does not use Exam Narrative Exam Narrative: Reviewed vitals signs and nursing notes. General: cooperative, comfortable, in no acute distress, well groomed MSK: moves all extremities, neurovascularly intact, no weakness, normal tone, wounds are covered currently with bandages to bilateral knees, his toes are exposed, there is edema present bilateral lower extremities, wounds have stuck to the gauze dressing and patient's pain is exquisite when trying to remove these dressings. Skin: Patient has multiple wounds to the lower extremities with ulceration, no significant erythema however and patient's wounds appear to be improved when comparing to the notes from his 1st visit. Patient's wounds were treated with bacitracin ointment a nonstick Vaseline gauze dressing and a lightly wrapped gauze dressing. Patient tolerated well after pain Psych: mental status is grossly normal, congruent mood, normal affect, pleasant and cooperative Initial Vital Signs Initial Vital Signs: Vital Signs Temperature 99.2 F 02/08/22 13:06 Pulse Rate 103 H 02/08/22 13:06 Respiratory Rate 15 02/08/22 13:06 Blood Pressure 128/66 02/08/22 13:06 Pulse Oximetry 95 02/08/22 13:06 Oxygen Delivery Method 02/08/22 13:06 Course Course Course Narrative: At 20:00, RN is changing patient's dressings, patient has significant pain, he received 2 mg p.o. Dilaudid already, he is screaming in in significant pain. Opted to treat him with IM Dilaudid 1 mg x 1 with another p.o. Dilaudid 2 mg tab, patient had swelling after his dressings were placed, they were with dry gauze Cob[place], patient has new tissue trying to grow and expanding into this gauz e, opted to change his dressing plan altogether in use topical ointment, Vaseline gauze so that it can ooze and drain into absorbent gauze dressing that is not tightly wrapped. Patient tolerated the dressing change much better after receiving his 2nd dose of pain medication. He received a total of 4 mg p.o. of Dilaudid, 1 mg of IM Dilaudid, Toradol, and was prescribed oxycodone for dressing changes. Patient was accidentally ordered hydrocodone 1st but he has an allergy to acetaminophen, he understands to not pick this up from the pharmacy note was applied to prescription to not fill the hydrocodone prescription due to allergy. Patient's dressing change was tolerated much better after his medications, he understands to follow up accordingly with wound care on Sunday as planned, he has a new patient appointment with a primary care provider on March 07, he will follow-up there as well. Patient was pleasant, his wounds do not show significance for worsening, he thinks that they look much better as well. Orders Ordered: Discontinued Medications Hydromorphone HCl (Hydromorphone 2 Mg Tablet) 2 mg PO NOW ONE Stop: 02/08/22 17:47 Last Admin: 02/08/22 17:52 Dose: 2 mg Documented By: ALEAH Hydromorphone HCl (Hydromorphone 1 Mg Inj) 1 mg IM NOW ONE Stop: 02/08/22 19:59 Last Admin: 02/08/22 20:05 Dose: 1 mg Documented By: POLO Hydromorphone HCl (Hydromorphone 2 Mg Tablet) 2 mg PO NOW ONE Stop: 02/08/22 20:01 Last Admin: 02/08/22 20:05 Dose: 2 mg Documented By: POLO Ketorolac Tromethamine (Ketorolac 30 Mg/Ml Vial) 15 mg IM NOW ONE Stop: 02/08/22 18:20 Last Admin: 02/08/22 19:26 Dose: 15 mg Documented By: MARELY Vital Signs Vital signs: Vital Signs - 8 hr 02/08/22 14:57 02/08/22 16:59 Pulse Rate 104 H 114 H Blood Pressure 124/62 118/60 Pulse Oximetry 98 100 Oxygen Delivery Method Room Air Room Air MDM - Recheck/Abnormal Lab/Rx Lab Data Lab results narrative: [facility] CLIA ID [id number] [address] [place] [address], [id number] RUN DATE: 02/08/22 Specimen Inquiry PAGE 1 RUN TIME: 6287 Name: RubinKartik Jacinta Age/Sex: 47/M Attend Dr: Sunday Nielsen D.O. Unit#: [id number] : 1975Location: ED Re02/06/22 Disch: Status: DEP ER SPEC #: [id number] BRADY: 02/06/22 STATUS: RES REQ #: [id number] SPDESC: RECD: 02/06/[address]: Sunday Nielsen D.O. SOURCE: Leg Rt ENTR: 02/06/[address]: Karla,Doctor FAX TO: ORDERED: WOUND Cx and GS Procedure Result Verified Site Gram Stain Final 02/06/222052 White blood cells Moderate poly WBCs Gram Positive Cocci 4+ Gram Negative Rods 1+ Aerobic Culture for wounds Preliminary 02/08/221026 Organism 1 Staphylococcus aureus Growth MODERATE Action to follow Sensitivity to Follow Organism 2 Gram negative bacilli Growth LIGHT Action to follow Identification and Sensitivity to Follow Anaerobic Culture Final 02/06/222052 Test not performed [facility] CLIA ID [id number] [address] [place] [address] RUN DATE: 02/08/22 Specimen Inquiry PAGE 1 RUN TIME: 1748 Name: Kartik Conklin Age/Sex: 47/M Attend Dr: Sunday Nielsen D.O. Unit#: [id number] : 1975Location: ED Re02/06/22 Disch: Status: DEP ER SPEC #: [id number] BRADY: 02/06/22 STATUS: RES REQ #: [id number] SPDESC: RECD: 02/06/[address]: Sunday Nielsen D.O. SOURCE: Leg Lt ENTR: 02/06/[address]: KarlaDoctor FAX TO: ORDERED: WOUND Cx and GS Procedure Result Verified Site Gram Stain Final 02/06/222051 White blood cells Many poly WBCs Gram Positive Cocci 3+ Gram Negative Rods 1+ Aerobic Culture for wounds Preliminary 02/08/22930 Organism 1 Staphylococcus aureus Growth HEAVY Action to follow Sensitivity to Follow Organism 2 Gram negative bacilli Growth LIGHT Action to follow Identification and Sensitivity to Follow Anaerobic Culture Final 02/06/222051 Test not performed Discharge Plan Departure Patient Disposition: Home Clinical Impression: Encounter for wound re-check, Encounter for change or removal of nonsurgical wound dressing Instructions: Debridement of a Wound, Infection, or Burn, Venous Stasis Ulcer Activity Restrictions/Additional Instructions: *You have been diagnosed with [wounds to the lower extremities, please follow-up at the wound Care Center on Sunday as planned. Hopefully this new dressing will be more comfortable and not cause such pain when it is removed. For this type of wound, I think it is ideal to have something nonstick because you have ongoing swelling the more your legs dependent and they have swelled, into the dressings that were wrapped a bit too tight. Please elevate your legs frequently, try to avoid them being in the dependent position for long, use ibuprofen 800 mg every 8 hours with food and water and combine this with your pain medication that I prescribed for you. Stay hydrated, I hope you feel better soon, Please follow up with provider as directed. Return to clinic/ER precautions discussed with patient for new, not-improving, or worsening symptoms. Please continue on your antibiotics. *What to do: *Please continue to take your regular medications as directed. [ x] New medication prescriptions sent to your pharmacy: [[facility]] [ ] New medication written as a paper prescription [ ] No new medications given *Please follow up with your primary care provider in 2-3 days, call for an appointment. Let them know you were seen in the Emergency Department and that we asked that you be seen for follow-up. We will electronically transmit a record of today's note if your PCP is in our system *If you do not have a primary care provider please contact [phone] to establish care with one of [facility] primary care providers. *Return to Emergency Department if you should have any new, worsening, or concerning symptoms, such as [fever greater than 101F, chills, worsening pain, persistent vomiting or other bothersome symptoms]. Prescriptions: New hydrocodone-acetaminophen 5-325 mg tablet 1 tab PO TID PRN (Reason: pain for dressing changes) Qty: 20 0RF oxycodone 5 mg tablet 5 mg PO Q8H PRN (Reason: pain) Qty: 20 0RF No Action hydrocodone-acetaminophen 5-325 mg tablet 1 tab PO Q4-6H PRN (Reason: pain) Qty: 10 0RF cephalexin 500 mg capsule 500 mg PO QID 7 Days Qty: 28 0RF Referrals: Wound Care Center [Outside] Catrachito Thayer MD [Physician] - Miscellaneous,MD Suzan [Primary Care Provider] - Visit Report Forms: Patient Portal/API
[2022-02-08] MEDS: HYDROMORPHONE 2 MG TABLET PO ×2 (17:52→20:05)
[2022-02-08] MEDS: KETOROLAC 30 MG/ML VIAL 15 MG IM (19:26)
[2022-02-08] MEDS: HYDROMORPHONE 1 MG INJ IM (20:05)
== END 2022-02-08 21:42 | disposition home or self-care (01) ==
PROVIDERS: Emergency Provider Nurse Practitioner Critical Care Medicine
DX: L97.929 Non-pressure chronic ulcer of unspecified part of left lower leg with unspecified severity (principal); L97.919 Non-pressure chronic ulcer of unspecified part of right lower leg with unspecified severity; Z48.00 Encounter for change or removal of nonsurgical wound dressing
CPT/HCPCS: 96372; 99283; J1170; J1885

== ENCOUNTER → 2022-02-10 09:48 | Outpatient (CLI) | payer OTHER, MEDICAID, SELFPAY | PROVIDERS: Referring Provider Emergency Medicine; Visit Provider Nurse Practitioner Family | DX: I89.0 Lymphedema, not elsewhere classified (principal); L97.812 Non-pressure chronic ulcer of other part of right lower leg with fat layer exposed; L97.822 Non-pressure chronic ulcer of other part of left lower leg with fat layer exposed; Z87.891 Personal history of nicotine dependence; M79.605 Pain in left leg; M79.604 Pain in right leg | CPT/HCPCS: 99203; 99214 ==

== ENCOUNTER 2022-02-10 10:24 | Emergency (ER) | payer OTHER, MEDICAID, SELFPAY ==
[2022-02-10 10:26] VITALS: BP 143/91; PULSE 130; RESP 25; TEMP 37.2; O2SAT 97; BMI 26.9
--- NOTE | 2022-02-10 10:32 | ED.GENADULT ---
HPI - General Adult General Chief complaint: Wound/Laceration Stated complaint: wound/back of leg extreme pain Time Seen by Provider: 02/10/22 10:29 Source: patient Mode of arrival: Ambulatory Limitations: no limitations History of Present Illness HPI narrative: 47-year-old male. Well known to myself. Has bilateral lower extremity ulcerations. Is on antibiotics. Went to wound care today. He states that the wound change went well. The old bandage is came off well. Mother the new bandage is on he developed quite a bit of burning and discomfort to the back of his legs. He was sent here to the emergency department for pain control. Related Data Previous Rx's Medication Instructions Recorded hydrocodone 5 mg-acetaminophen 325 1 tab PO Q4-6H PRN pain #10 tabs 11/04/21 mg tablet cephalexin 500 mg capsule 500 mg PO QID 7 days #28 caps 02/06/22 hydrocodone 5 mg-acetaminophen 325 1 tab PO TID PRN pain for dressing 02/08/22 mg tablet changes #20 tabs oxycodone 5 mg tablet 5 mg PO Q8H PRN pain #20 tabs 02/08/22 Allergies Allergy/AdvReac Type Severity Reaction Status Date / Time acetaminophen Allergy Verified 02/10/22 10:31 bee venom protein (honey bee) Allergy Verified 02/10/22 10:31 diazepam [From Valium] Allergy Verified 02/10/22 10:31 Review of Systems Constitutional Constitutional: Reports system reviewed and no additional complaints, except as documented Musculoskeletal Musculoskeletal: Reports system reviewed and no additional complaints, except as documented Integumentary/Breasts Skin/Breast: Reports system reviewed and no additional complaints, except as documented Patient History Medical History Patient denies medical problems Social History Smoking Status: Current every day smoker Smoking Status: Current every day smoker tobacco type: cigarettes alcohol intake frequency: other Substance Use Type: does not use Exam Initial Vital Signs Initial Vital Signs: Vital Signs Temperature 98.9 F 02/10/22 10:26 Pulse Rate 130 H 02/10/22 10:26 Respiratory Rate 25 H 02/10/22 10:26 Blood Pressure 143/91 H 02/10/22 10:26 Pulse Oximetry 97 02/10/22 10:26 Oxygen Delivery Method 02/10/22 10:26 [facility] Head: normal to inspection and normocephalic Skin Other: Lower extremity ulcerations or covered with clean and dry bandages Extrem Other: Swelling to bilateral lower extremities. Covered with bandages. Course Orders Ordered: Discontinued Medications Hydromorphone HCl (Hydromorphone 1 Mg Inj) 1 mg IM NOW ONE Stop: 02/10/22 10:34 Last Admin: 02/10/22 10:38 Dose: 1 mg Documented By: YOLANDA Hydromorphone HCl (Hydromorphone 2 Mg Tablet) 2 mg PO NOW ONE Stop: 02/10/22 11:14 Last Admin: 02/10/22 11:21 Dose: 2 mg Documented By: YOLANDA Ketorolac Tromethamine (Ketorolac 30 Mg/Ml Vial) 30 mg IM NOW ONE Stop: 02/10/22 11:09 Vital Signs Vital signs: Vital Signs - 8 hr 02/10/22 10:26 Temperature 98.9 F Pulse Rate 130 H Respiratory Rate 25 H Blood Pressure 143/91 H Pulse Oximetry 97 Oxygen Delivery Method Room Air Medical Decision Making [facility] Narrative Medical decision making narrative: Patient's dressings were changed at wound care earlier today. There was a mix up from the last time that he was here he thought that the pain medication that he was prescribed he was told not to potato picker. That was the pain medicine that contained the acetaminophen. There was another pain medicine that was just oxycodone that was sent to the pharmacy. The patient states he did not know that was there. Will discharge patient home with instructions to potato picker this medication. He will follow-up with wound care. He will continue his current antibiotics. Discharge Plan Departure Patient Disposition: Home Clinical Impression: Skin ulcer Activity Restrictions/Additional Instructions: You did have pain medication that does not contain acetaminophen/Tylenol sent to the pharmacy. Please pick it up as directed so that you can take it prior to dressing changes. Please follow-up with wound care. Continue to take your antibiotics as directed. I do recommend that you also start on a stool softener. You can purchase these [id number]. Opioid pain medication can cause constipation. Prescriptions: No Action hydrocodone-acetaminophen 5-325 mg tablet 1 tab PO Q4-6H PRN (Reason: pain) Qty: 10 0RF hydrocodone-acetaminophen 5-325 mg tablet 1 tab PO TID PRN (Reason: pain for dressing changes) Qty: 20 0RF oxycodone 5 mg tablet 5 mg PO Q8H PRN (Reason: pain) Qty: 20 0RF cephalexin 500 mg capsule 500 mg PO QID 7 Days Qty: 28 0RF Referrals: Miscellaneous,Doctor, [Primary Care Provider] -
[2022-02-10] MEDS: HYDROMORPHONE 1 MG INJ IM (10:38)
[2022-02-10] MEDS: HYDROMORPHONE 2 MG TABLET PO (11:21)
--- NOTE | 2022-02-10 11:25 | PC.NURSE ---
Pt states Bilat lower extrem wound dressings were completed by wound care however they could not finish wrapping. Pt has been medicated w/ dilaudid im & dilaudid po. Asked to hold the toradol im. give me a minute. Call donohue within reach, instructed to call when he wants it. Dr. iNelsen aware.
[2022-02-10 13:29] VITALS: BP 164/88; PULSE 114; RESP 18; O2SAT 99
== END 2022-02-10 13:30 | disposition home or self-care (01) ==
PROVIDERS: Emergency Provider Emergency Medicine
DX: L97.929 Non-pressure chronic ulcer of unspecified part of left lower leg with unspecified severity (principal); L97.919 Non-pressure chronic ulcer of unspecified part of right lower leg with unspecified severity; I89.0 Lymphedema, not elsewhere classified; L97.812 Non-pressure chronic ulcer of other part of right lower leg with fat layer exposed; L97.822 Non-pressure chronic ulcer of other part of left lower leg with fat layer exposed; Z87.891 Personal history of nicotine dependence; M79.605 Pain in left leg; M79.604 Pain in right leg
CPT/HCPCS: 96372; 99214; 99283; J1170; J1885

== ENCOUNTER → 2022-02-14 10:36 | Outpatient (CLI) | payer OTHER, MEDICAID, SELFPAY | PROVIDERS: Referring Provider Emergency Medicine; Visit Provider Surgery | DX: I89.0 Lymphedema, not elsewhere classified (principal); L97.812 Non-pressure chronic ulcer of other part of right lower leg with fat layer exposed; L97.822 Non-pressure chronic ulcer of other part of left lower leg with fat layer exposed; L08.9 Local infection of the skin and subcutaneous tissue, unspecified; M79.605 Pain in left leg; M79.604 Pain in right leg | CPT/HCPCS: 99213; 99214 ==

== ENCOUNTER → 2022-02-17 13:10 | Outpatient (CLI) | payer OTHER, MEDICAID, SELFPAY | PROVIDERS: Referring Provider Emergency Medicine; Visit Provider Nurse Practitioner Family | DX: I89.0 Lymphedema, not elsewhere classified (principal); L97.812 Non-pressure chronic ulcer of other part of right lower leg with fat layer exposed; L97.822 Non-pressure chronic ulcer of other part of left lower leg with fat layer exposed; L08.9 Local infection of the skin and subcutaneous tissue, unspecified; R60.0 Localized edema; L53.9 Erythematous condition, unspecified; Z87.891 Personal history of nicotine dependence | CPT/HCPCS: 99213; 99214 ==

== ENCOUNTER → 2022-02-23 11:04 | Outpatient (CLI) | payer OTHER, MEDICAID, SELFPAY | PROVIDERS: Referring Provider Emergency Medicine; Visit Provider Surgery | DX: I89.0 Lymphedema, not elsewhere classified (principal); L97.812 Non-pressure chronic ulcer of other part of right lower leg with fat layer exposed; L97.822 Non-pressure chronic ulcer of other part of left lower leg with fat layer exposed; Z87.891 Personal history of nicotine dependence; L08.9 Local infection of the skin and subcutaneous tissue, unspecified | CPT/HCPCS: 87070; 87075; 87077; 87147; 87186; 87205; 99213; 99214 ==

== ENCOUNTER → 2022-03-08 09:13 | Outpatient (CLI) | payer OTHER, MEDICAID, SELFPAY ==
[2022-03-08 11:05] LABS: Hemoglobin A1C% w Est Avg Glu 5.3 % (4.0-6.0)
[2022-03-08 11:57] LABS: Cholesterol 161 mg/dL (140-199); HDL Cholesterol 30 mg/dL (40-60); LDL Cholesterol Calculated 109 mg/dL (<100); Triglycerides 108 mg/dL (35-150)
== END ==
PROVIDERS: PCP Family Medicine; Referring Provider Family Medicine; Visit Provider Family Medicine
DX: I10 Essential (primary) hypertension (principal); L97.812 Non-pressure chronic ulcer of other part of right lower leg with fat layer exposed; L97.822 Non-pressure chronic ulcer of other part of left lower leg with fat layer exposed
CPT/HCPCS: 36415; 80061; 83036

== ENCOUNTER 2022-04-02 09:17 | Inpatient (IN) | payer OTHER, MEDICAID, SELFPAY ==
[2022-04-02] VITALS (12 sets, daily range): BP systolic 116–143; BP diastolic 56–103; PULSE 104–138; RESP 12–27; TEMP 36.3–37.3; O2SAT 96–100; BMI 26.9; BMI 30.8
--- NOTE | 2022-04-02 09:25 | DI.RAD.S_ITS ---
PROCEDURE: XR CHEST 1V INDICATIONS: suspected sepsis TECHNIQUE: One view of the chest was acquired. COMPARISON: [facility], , XR CHEST 2V, 11/04/2021, 13:40. FINDINGS: Surgical changes and devices: None. Lungs and pleura: On this semiupright portable chest examination, no large pneumothorax or large pleural effusions are seen. No focal infiltrates are seen. Mediastinum: Mediastinal contours appear normal. Heart size is normal. Bones and chest wall: No suspicious bony lesions. Overlying soft tissues appear unremarkable. IMPRESSION: Portable chest within normal limits. No focal infiltrates are seen. Dictated by: Mervin Rush M.D. on 04/02/2022 at 8:39 Approved by: Mervin Rush M.D. on 04/02/2022 at 8:40
[2022-04-02] MEDS: SODIUM CHLORIDE 0.9% 1,000 ML 1000 ML IV (09:38)
[2022-04-02 09:43] LABS: Add Manual Diff / Slide Review NO; Basophils Absolute Auto 100 /uL (0-100); Basophils Percent Auto 1.3 % (0-2); Eosinophils Absolute Auto 500 /uL (0-450); Eosinophils Percent Auto 6.4 % (2-4); Hematocrit 41.3 % (41-53); Hemoglobin 13.8 g/dL (13.5-17.5); Lymphocytes Absolute Auto 1900 /uL (1100-4500); Lymphocytes Percent Auto 24.4 % (25-40); Mean Corpuscular HGB Conc 33.4 % (30-36); Mean Corpuscular Volume 89.8 fL (80-100); Monocytes Absolute Auto 600 /uL (0-900); Neutrophils Absolute Auto 4700 /uL (1500-7000); Neutrophils Percent Auto 59.9 % (50-75); Platelet Count 378 X10^3/uL (150-400); Red Cell Distribution Width 13.4 % (11.6-14.8); White Blood Cell Count 7.9 X10^3/uL (4.5-11.0)
[2022-04-02 09:46] LABS: Prothrombin Time 11.8 SECONDS (10.1-12.7)
[2022-04-02 09:48] LABS: PTT Partial Thromboplastin Tim 31 SECONDS (26-36)
[2022-04-02 09:51] LABS: Alanine Aminotransferase 19 IU/L (<50); Albumin 4.6 g/dL (3.5-5.0); Albumin Globulin Ratio 1.2 (1.0-2.8); Alkaline Phosphatase 79 U/L (38-126); Aspartate Aminotransferase 23 IU/L (17-59); BUN Creatinine Ratio 17.9 (6-22); Bilirubin Total 0.6 mg/dL (0.2-1.3); Blood Urea Nitrogen 10 mg/dL (9-20); Calcium 9.4 mg/dL (8.4-10.2); Carbon Dioxide 27 mmol/L (22-32); Chloride 101 mmol/L (98-107); Estimated Glomerular Filt Rate > 60 mL/min (>60); Globulin 3.8 g/dL (1.7-4.1); Glucose 81 mg/dL (70-100); HEMOLYSIS 22 (0-50); Lactate (Lactic Acid) 2.4 mmol/L (0.7-2.1); Lipase 128 U/L (23-300); Potassium 3.4 mmol/L (3.4-5.1); Sodium 138 mmol/L (137-145); Total Protein 8.4 g/dL (6.3-8.2)
[2022-04-02] MEDS: HYDROMORPHONE 1 MG INJ IV (10:00)
[2022-04-02] MEDS: ONDANSETRON 4 MG/2 ML INJ IV (10:00)
[2022-04-02 10:08] LABS: Procalcitonin 0.04 ng/mL (<0.5)
--- NOTE | 2022-04-02 10:13 | DI.US.S_ITS ---
PROCEDURE: US PERIPH VENOUS LOW EXTREM LT INDICATIONS: swelling TECHNIQUE: Real-time imaging, as well as color and pulse Doppler interrogation, were performed of the lower extremity deep veins from the inguinal ligament to the popliteal fossa. COMPARISON: None. FINDINGS: The common femoral, femoral and popliteal veins are normally compressible, and free of intraluminal thrombus. Color and pulse Doppler demonstrate normal phasic intraluminal flow. There is normal augmentation response to distal compression maneuver. IMPRESSION: No evidence of left lower extremity deep venous thrombosis. Dictated by: Brice Villa M.D. on 04/02/2022 at 12:45 Approved by: Brice Villa M.D. on 04/02/2022 at 12:45
[2022-04-02] MEDS: CEFEPIME 2 GM in SODIUM CHLORIDE 0.9% 100 ML IV (10:41)
--- NOTE | 2022-04-02 10:53 | ED.SKABFB ---
HPI - Skin/Abscess/Foreign Bdy General Chief complaint: Skin/Abscess/Foreign Body Stated complaint: leg pain/infection Time Seen by Provider: 04/02/22 09:51 Source: patient Mode of arrival: Wheelchair Limitations: no limitations History of Present Illness HPI narrative: Patient is a 47-year-old male history of hypertension hyperlipidemia chronic wounds in his lower extremities presenting today with increasing pain in his legs. He apparently is followed by wound care he was seen and evaluated wound care for a dressing change 2 weeks ago. Today he is having increasing pain. He denies fever or chills. No chest pain abdominal pain nausea or vomiting. He is noted to be tachycardic. His legs have a foul smell and obvious dirty bandages. Patient was seen here multiple times last month for the same. Initially seen on February 06 where he had a workup and discharged home on Keflex he was re-evaluated on the he returned on the and . Seem to be tachycardic each time. When asked about illicit drug use he says that he previously did use methamphetamine however he says he quit that. He did cocaine a couple of times he did not like it. He says he smoked heroin but never used IV drugs. He also admits to marijuana use. Related Data Home Medications Medication Instructions Recorded Confirmed ibuprofen 200 mg tablet 200 mg PO Q6H PRN Pain (Scale 04/02/22 04/02/22 Score 4-6) Previous Rx's Medication Instructions Recorded lisinopril 10 mg tablet 10 mg PO DAILY #30 tabs 03/09/22 sulfamethoxazole 800 1 tab PO BID #20 tabs 03/09/22 mg-trimethoprim 160 mg tablet atorvastatin 20 mg tablet (Lipitor) 20 mg PO BEDTIME cholesterol #90 03/24/22 tabs oxycodone 5 mg tablet 5 mg PO TID PRN pain #30 tabs 03/24/22 Allergies Allergy/AdvReac Type Severity Reaction Status Date / Time acetaminophen Allergy Verified 03/08/22 08:44 bee venom protein (honey bee) Allergy Verified 03/08/22 08:44 diazepam [From Valium] Allergy Verified 03/08/22 08:44 Review of Systems Review of Systems ROS Unobtainable: All systems reviewed & are unremarkable except as noted in HPI and below Patient History Medical History Benign essential HTN Hyperlipidemia Non-pressure chronic ulcer of other part of left lower leg with fat layer exposed Non-pressure chronic ulcer of other part of right lower leg with fat layer exposed Patient denies medical problems Tobacco dependence Social History household members: family Smoking Status: Current every day smoker alcohol intake: former Smoking Status: Current every day smoker tobacco type: cigarettes alcohol intake frequency: other Substance Use Type: does not use Exam Initial Vital Signs Initial Vital Signs: Vital Signs Temperature 97.4 F L 04/02/22 09:20 Pulse Rate 138 H 04/02/22 09:20 Respiratory Rate 20 04/02/22 09:20 Blood Pressure 140/67 04/02/22 09:20 Pulse Oximetry 98 04/02/22 09:20 Oxygen Delivery Method 04/02/22 09:20 GENERAL: Alert 47-year-old male appears older than stated HEENT: Head atraumatic,EOMI, pupils reactive, face symmetric, [moist] mucous membranes CARDIOVASCULAR: Regular rate and rhythm without murmurs, rubs or gallops. RESPIRATORY: Breath sounds equal bilaterally, no wheezes rales or rhonchi. ABDOMEN: Soft, nontender. Normoactive bowel sounds all 4 quadrants. No guarding or rebound. EXTREMITIES: Normal range of motion, no clubbing or edema. Neurovascularly intact Left leg is significantly more swollen than the right. Patient says it is chronically that way. NEUROLOGICAL: Alert and oriented x4. SKIN: Bilateral lower extremities extreme foul-smelling gross discharge. Multiple ulcers on both legs. Erythematous. All erythema remains below the knees. There is some crusting over as well. Course Orders Ordered: ED Orders 04/02/22 14:32 COVID19 -Nasal RAPID/Pre-Proc Stat 04/02/22 15:20 Urine Drug Screen, Rapid Stat Atorvastatin Calcium (Atorvastatin 20 Mg Tablet) 20 mg PO BEDTIME LAUREN Enoxaparin Sodium (Enoxaparin 40 Mg/0.4 Ml Syringe) 40 mg SUBCUT DAILY LAUREN Hydromorphone HCl (Hydromorphone 0.5 Mg Inj) 0.5 mg IV Q4H PRN PRN Reason: Pain, Moderate (4-6) Last Admin: 04/02/22 16:22 Dose: 0.5 mg Documented By: JESUSITA Cefepime HCl 2 gm/ Sodium (Chloride) 100 mls @ 200 mls/hr IV Q12H [facility] Sodium Chloride (Normal Saline 0.9%) 250 mls @ 21 mls/hr IV Q24H PRN PRN Reason: Flush Lisinopril (Lisinopril 10 Mg Tablet) 10 mg PO DAILY [facility] Naloxone HCl (Naloxone 0.4 Mg/Ml Vial) 0.2 mg IV Q2MIN PRN PRN Reason: Opiate Reversal Nicotine (Nicotine 14 Patch) 14 mg TOP DAILY [facility] Last Admin: 04/02/22 16:22 Dose: 14 mg Documented By: JESUSITA Oxycodone HCl (Oxycodone Ir 10 Mg Tablet) 10 mg PO Q3H PRN PRN Reason: Pain, Severe (7-10) Sennosides (Sennosides 8.6 Mg Tablet) 17.2 mg PO BEDTIME [facility] Sodium Chloride (Sodium Chloride 0.9% Flush) 10 ml IV PRN PRN PRN Reason: Flush Sodium Chloride (Sodium Chloride 0.9% Flush) 10 ml IV BID LAUREN Discontinued Medications Hydromorphone HCl (Hydromorphone 1 Mg Inj) 1 mg IV NOW ONE Stop: 04/02/22 09:52 Last Admin: 04/02/22 10:00 Dose: 1 mg Documented By: ALEAH Hydromorphone HCl (Hydromorphone 0.5 Mg Inj) 1 mg IV NOW ONE Stop: 04/02/22 12:01 Last Admin: 04/02/22 12:03 Dose: 1 mg Documented By: MARELY Sodium Chloride (Normal Saline 0.9%) 1,000 mls @ 1,000 mls/hr IV BOLUS ONE Stop: 04/02/22 10:24 Last Infusion: 04/02/22 10:42 Dose: 0 mls/hr Documented By: Admin: 04/02/22 09:38 Dose: 1,000 mls/hr Documented By: MARELY Cefepime HCl 2 gm/ Sodium (Chloride) 100 mls @ 200 mls/hr IV NOW ONE Stop: 04/02/22 10:26 Last Infusion: 04/02/22 11:17 Dose: 0 mls/hr Documented By: Admin: 04/02/22 10:41 Dose: 200 mls/hr Documented By: MARELY Vancomycin HCl (Vancomycin) 1,000 mg in 200 mls @ 200 mls/hr IV NOW ONE Stop: 04/02/22 11:24 Last Infusion: 04/02/22 12:59 Dose: 0 mls/hr Documented By: Admin: 04/02/22 11:35 Dose: 200 mls/hr Documented By: AT Vancomycin HCl (Vancomycin) 1,250 mg in 250 mls @ 250 mls/hr IV Q8H [facility] Last Admin: 04/02/22 18:46 Dose: 250 mls/hr Documented By: TLS Ondansetron HCl (Ondansetron 4 Mg/2 Ml Inj) 4 mg IV NOW PRN PRN Reason: Nausea And Vomiting Last Admin: 04/02/22 10:00 Dose: 4 mg Documented By: ALEAH Ondansetron HCl (Ondansetron 4 Mg Odt) 4 mg SL NOW PRN PRN Reason: Nausea And Vomiting Vancomycin HCl (Vancomycin Trough) 1 request [facility] [address] [facility] Stop: 04/03/22 09:31 Vancomycin HCl (Vancomycin Peak) 1 request [facility] [address] [facility] Stop: 04/03/22 12:01 Vital Signs Vital signs: Vital Signs - 8 hr 04/02/22 09:20 04/02/22 10:41 Temperature 97.4 F L Pulse Rate 138 H 110 H Respiratory Rate 20 12 Blood Pressure 140/67 143/78 H Pulse Oximetry 98 100 Oxygen Delivery Method Room Air MDM - Skin/Abscess/Foreign Bdy Lab Data 04/02/22 09:30 04/02/22 09:30 Labs: Lab Results 04/02/22 04/02/22 04/02/22 Range/Units 09:30 09:30 09:30 WBC 7.9 (4.5-11.0) X10^3/uL RBC 4.60 (4.5-5.9) X10^6/uL Hgb 13.8 (13.5-17.5) g/dL Hct 41.3 (41-53) % MCV 89.8 (80-100) fL MCH 30.0 (26-34) PG MCHC 33.4 (30-36) % RDW 13.4 (11.6-14.8) % Plt Count 378 (150-400) X10^3/uL Neut % (Auto) 59.9 (50-75) % Lymph % (Auto) 24.4 L (25-40) % [place] % (Auto) 8.0 (3-14) % Eos % (Auto) 6.4 H (2-4) % Baso % (Auto) 1.3 (0-2) % Neut # (Auto) 4700 (6389-9797) /uL Lymph # (Auto) 1900 (6255-7685) /uL [place] # (Auto) 600 (0-900) /uL Eos # (Auto) 500 H (0-450) /uL Baso # (Auto) 100 (0-100) /uL PT 11.8 (10.1-12.7) SECONDS INR 1.0 (0.9-1.3) APTT 31 (26-36) SECONDS Sodium 138 (137-145) mmol/L Potassium 3.4 (3.4-5.1) mmol/L Chloride 101 (98-107) mmol/L Carbon Dioxide 27 (22-32) mmol/L BUN 10 (9-20) mg/dL Creatinine 0.56 L (0.66-1.25) mg/dL Estimated GFR > 60 (>60) mL/min BUN/Creatinine Ratio 17.9 (6-22) Glucose 81 (70-100) mg/dL Lactate (0.7-2.1) mmol/L Calcium 9.4 (8.4-10.2) mg/dL Total Bilirubin 0.6 (0.2-1.3) mg/dL AST 23 (17-59) IU/L ALT 19 (<50) IU/L Alkaline Phosphatase 79 (38-126) U/L Total Protein 8.4 H (6.3-8.2) g/dL Albumin 4.6 (3.5-5.0) g/dL Globulin 3.8 (1.7-4.1) g/dL Albumin/Globulin Ratio 1.2 (1.0-2.8) Lipase 128 (23-300) U/L Procalcitonin 0.04 (<0.5) ng/mL 04/02/22 Range/Units 09:30 WBC (4.5-11.0) X10^3/uL RBC (4.5-5.9) X10^6/uL Hgb (13.5-17.5) g/dL Hct (41-53) % MCV (80-100) fL MCH (26-34) PG MCHC (30-36) % RDW (11.6-14.8) % Plt Count (150-400) X10^3/uL Neut % (Auto) (50-75) % Lymph % (Auto) (25-40) % [place]on % (Auto) (3-14) % Eos % (Auto) (2-4) % Baso % (Auto) (0-2) % Neut # (Auto) (7217-5950) /uL Lymph # (Auto) (4588-7360) /uL Har[place]on # (Auto) (0-900) /uL Eos # (Auto) (0-450) /uL Baso # (Auto) (0-100) /uL PT (10.1-12.7) SECONDS INR (0.9-1.3) APTT (26-36) SECONDS Sodium (137-145) mmol/L Potassium (3.4-5.1) mmol/L Chloride (98-107) mmol/L Carbon Dioxide (22-32) mmol/L BUN (9-20) mg/dL Creatinine (0.66-1.25) mg/dL Estimated GFR (>60) mL/min BUN/Creatinine Ratio (6-22) Glucose (70-100) mg/dL Lactate 2.4 H (0.7-2.1) mmol/L Calcium (8.4-10.2) mg/dL Total Bilirubin (0.2-1.3) mg/dL AST (17-59) IU/L ALT (<50) IU/L Alkaline Phosphatase (38-126) U/L Total Protein (6.3-8.2) g/dL Albumin (3.5-5.0) g/dL Globulin (1.7-4.1) g/dL Albumin/Globulin Ratio (1.0-2.8) Lipase (23-300) U/L Procalcitonin (<0.5) ng/mL Imaging Data Chest x-ray: Radiologist's Impression: XRay Report Signed Patient: Kartik Conklin MR#: [id number] : 1975 Acct:[id number] Age/Sex: 47 / M Date of Service: 04/02/22 Loc: ED Accession Number: [id number] ?? Procedure: XR chest 1V Ordering Provider: Letty Napier D.O. PROCEDURE:? XR CHEST 1V ? INDICATIONS:? suspected sepsis ? TECHNIQUE:? One view of the chest was acquired.? ? COMPARISON:? [facility], , XR CHEST 2V, 11/04/2021, 13:40. ? FINDINGS:? ? Surgical changes and devices:? None.? ? Lungs and pleura:? On this semiupright portable chest examination, no large pneumothorax or large pleural effusions are seen.? No focal infiltrates are seen.? ? Mediastinum:? Mediastinal contours appear normal.? Heart size is normal.? ? Bones and chest wall:? No suspicious bony lesions.? Overlying soft tissues appear unremarkable.? ? ? IMPRESSION:? ? Portable chest within normal limits. ? ? No focal infiltrates are seen. ? Dictated by: Mervin Rush M.D. on 04/02/2022 at 8:39 ? ? US - DVT: Radiologist's Impression: Ultrasound Report Signed Patient: Kartik Conklin MR#: [id number] : 1975 Acct:[id number] Age/Sex: 47 / M Date of Service: 04/02/22 Loc: 90B-1 Accession Number: [id number] ?? Procedure: US periph venous low extrem lt Ordering Provider: Letty Napier D.O. PROCEDURE:? US PERIPH VENOUS LOW EXTREM LT ? INDICATIONS:? swelling ? TECHNIQUE:? Real-time imaging, as well as color and pulse Doppler interrogation, were performed of the lower extremity deep veins from the inguinal ligament to the popliteal fossa.? ? COMPARISON:? None. ? FINDINGS:? The common femoral, femoral and popliteal veins are normally compressible, and free of intraluminal thrombus.? Color and pulse Doppler demonstrate normal phasic intraluminal flow.? There is normal augmentation response to distal compression maneuver. ? ? IMPRESSION:? No evidence of left lower extremity deep venous thrombosis. ? ? Dictated by: Brice Villa M.D. on 04/02/2022 at 12:45 ECG Data Interpretation: Sinus tachycardia rate 108 SC interval 158 QRS [address] changes PVC noted MDM Narrative Medical decision making narrative: Patient is a 47-year-old male history of hypertension polysubstance abuse chronic leg wounds presenting with leg pain and foul-smelling discharge from the legs. Previously he did not have an elevated lactate however today his lactate is 2.4 he is tachycardic at 1:30 a.m. no leukocytosis. He was here multiple times last month his failing outpatient treatment. Wound cultures are pending along with blood cultures. He is given Dilaudid for pain. Drug screen per urinalysis is still pending. It does report his PCP note that he takes oxycodone for pain some of this may be related as well he is given Dilaudid along with IV fluids. His heart rate improves with both of those. He is given cefepime and vancomycin. Previous wound cultures show Staphylococcus aureus sensitive to vancomycin, Enterobacter coli Ca sensitive to cefepime, Morganella also sensitive to cefepime. Dr. Philippe updated on patient's symptoms test results and kindly accepts patient. Discharge Plan Departure Patient Disposition: Admitted As Inpatient Clinical Impression: Cellulitis of both lower extremities Admit Date/Time: 04/02/22 10:58 Admit Provider: Mae Philippe
[2022-04-02] MEDS: VANCOMYCIN 1,000 MG/200 ML PIGGYBACK 200 MG IV (11:35)
[2022-04-02 11:37] LABS: Reflexed Lactate in 2 Hours Y
[2022-04-02] MEDS: HYDROMORPHONE 0.5 MG INJ 1 MG IV (12:03)
[2022-04-02 12:47] LABS: C-Reactive Protein Quant < 0.5 mg/dL (<1.0)
[2022-04-02 14:45] LABS: Lactate 2HR (Lactic Acid Rflx) 0.6 mmol/L (0.7-2.1)
[2022-04-02 15:02] LABS: COVID19 -Nasal RAPID Negative (Negative)
[2022-04-02 15:49] LABS: UR Morphine/Opiate cutoff 300 Negative (Negative); Ur Creatinine Normal (Normal); Ur Specific Gravity Normal (Normal); Urine Amphetamines Negative (Negative); Urine Barbiturates Negative (Negative); Urine Benzodiazepines Negative (Negative); Urine Cocaine Negative (Negative); Urine MDMA Negative (Negative); Urine Methadone Negative (Negative); Urine Methamphetamines Negative (Negative); Urine Oxycodone Negative (Negative); Urine Phencyclidine Negative (Negative); Urine Tetrahydrocannabinol Negative (Negative); Urine Tricyclic Antidepressant Negative (Negative); Urine pH Normal (Normal)
--- NOTE | 2022-04-02 15:53 | PC.NURSE ---
Addendum entered by Marcia Banegas R.N. 04/02/22 15:56: admission BLE wounds Original Note:
[2022-04-02] MEDS: HYDROMORPHONE 0.5 MG INJ IV (16:22)
[2022-04-02] MEDS: NICOTINE 14 PATCH 14 MG TOP (16:22)
--- NOTE | 2022-04-02 16:35 | PM.HP.1 ---
History of Present Illness History of Present Illness Chief complaint: leg pain/infection Narrative: 47-year-old gentleman with hypertension, hyperlipidemia, GERD/PUD, chronic right shoulder pain related to dislocations, chronic knee pain related to dislocations and osteoarthritis who presented to the emergency department with worsening leg swelling and ulceration. 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 He notes around November of 2021 he developed lower extremity swelling and skin scaling. He states it progressively worsened and he ultimately came to the emergency department in February for evaluation. Of note, he was seen in the emergency department in early November after a fall with rib contusions. At that time he did not complain of any injury or rash to his legs. He was seen in the emergency department on February 06. He reported during his February 06 visit that he would had some abrasions on his legs after his fall in November. He reported in February that his legs were fine until 2 weeks prior to presentation. He gave a 2 week history of increasing edema, crusting, and pain. He was given a prescription for Keflex and hydrocodone. He was encouraged to do wet to dry dressings. He was also given a referral to wound care. He followed up in the emergency department the next day. He was reporting improvement at that time. Wound cultures were positive for staph aureus and Gram-negative bacilli. He returned to the emergency department on February 08 complaining of pain with dressing changes. Dressings were changed and he was given recommendations once again for wound care appointment. He was seen by wound care on February 10. They sent him to the ED for pain management afterwards. He is continued following with the wound care clinic since that time. He established with Becky Newton, primary care, earlier this month. She gave him 20 oxycodone to be used only during dressing changes. She encouraged use of acetaminophen/ibuprofen for pain mgmt. A1c was done which was within normal limits. He last saw the wound care clinic team approximately 2 weeks ago. At that time they put impression dressing on. Due to significant pain with dressing changes, he had not changed his dressings in 2 weeks' time. He presented the emergency department today complaining of increasing pain. No fevers or chills. No nausea vomiting. Abdominal pain. He was noted have foul-smelling dressings and leg wounds. Dressings were removed and he was found to have evidence of bilateral lower extremity cellulitis. White blood cell count was normal. Blood wound cultures were done and are pending. CRP was normal. He received cefepime and vancomycin and admission was recommended. Patient reports he was smoking a pack per day but is primary care provider encouraged him to cut down. He is now down to 8 cigarettes a day from over 1 pack per day. 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 He expresses concern about being able to work in his current position with his leg wounds and swelling. He has a remote history of substance use, no previous IV drug use. No history of MRSA. Prior cultures from the legs revealed Morganella morganii, Enterobacter, and MSSA. Patient reports he has been prescribed Keflex on 2 occasions. Most recently he was on Bactrim. He states he has been taking that over the last month and it is an active prescription currently. Patient History Medical History Benign essential HTN Hyperlipidemia Non-pressure chronic ulcer of other part of left lower leg with fat layer exposed Non-pressure chronic ulcer of other part of right lower leg with fat layer exposed Patient denies medical problems Tobacco dependence Comment: Additional medical history: Osteoarthritis of bilateral knees and right shoulder GERD/peptic ulcer disease Remote polysubstance use inclusive of methamphetamines Alcohol dependence, sober x6 months Family & Social History Social History: household members family Prior Living Arrangements Apartment/Condo Safety & Behavioral: Feels Safe in Current Yes Environment Been Physically Hurt or No Threatened By a Person Tobacco & Substance use: Tobacco type cigarettes Smoking Status Current every day smoker alcohol intake former alcohol intake frequency other Substance Use Type does not use Comment: Family history: Maternal grandmother and maternal grandmother both had cancer There, sister, and a paternal cousin had diabetes Social history Smokes 8 cigarettes daily as noted. No alcohol use time 6 months. No current recreational drugs Meds Home Medications and Allergies Home Medications Medication Instructions Recorded Confirmed Type lisinopril 10 mg tablet 10 mg PO DAILY #30 tabs 03/09/22 04/02/22 Rx sulfamethoxazole 800 1 tab PO BID #20 tabs 03/09/22 04/02/22 Rx mg-trimethoprim 160 mg tablet atorvastatin 20 mg tablet (Lipitor) 20 mg PO BEDTIME cholesterol #90 03/24/22 04/02/22 Rx tabs oxycodone 5 mg tablet 5 mg PO TID PRN pain #30 tabs 03/24/22 04/02/22 Rx ibuprofen 200 mg tablet 200 mg PO Q6H PRN Pain (Scale 04/02/22 04/02/22 History Score 4-6) Allergies Allergy/AdvReac Type Severity Reaction Status Date / Time acetaminophen Allergy Verified 03/08/22 08:44 bee venom protein (honey bee) Allergy Verified 03/08/22 08:44 diazepam [From Valium] Allergy Verified 03/08/22 08:44 Review of Systems Review of Systems Narrative: All other systems were reviewed negative Exam Vital Signs (past 8 hours): - 04/02/22 09:20 04/02/22 10:41 04/02/22 11:00 Temperature 97.4 F L Pulse Rate 138 H 110 H Respiratory Rate 20 12 Blood Pressure 140/67 143/78 H 143/70 H Pulse Oximetry 98 100 Oxygen Delivery Method Room Air 04/02/22 11:00 04/02/22 11:30 04/02/22 11:30 Temperature Pulse Rate 111 H 111 H Respiratory Rate 14 20 Blood Pressure 136/73 Pulse Oximetry 98 99 Oxygen Delivery Method Room Air 04/02/22 12:00 04/02/22 12:01 04/02/22 12:01 Temperature Pulse Rate 124 H 135 H Respiratory Rate 26 H 27 H Blood Pressure 127/103 H Pulse Oximetry 100 Oxygen Delivery Method 04/02/22 12:30 04/02/22 12:30 04/02/22 13:00 Temperature Pulse Rate 114 H Respiratory Rate 19 Blood Pressure 129/56 L 121/64 Pulse Oximetry 96 Oxygen Delivery Method 04/02/22 13:00 04/02/22 13:30 04/02/22 13:30 Temperature Pulse Rate 108 H 104 H Respiratory Rate 16 16 Blood Pressure 126/58 L Pulse Oximetry 96 97 Oxygen Delivery Method 04/02/22 14:00 04/02/22 14:00 Temperature Pulse Rate 109 H Respiratory Rate 20 Blood Pressure 116/63 Pulse Oximetry 96 Oxygen Delivery Method Oxygen Delivery Method Room Air Narrative Exam Narrative: GEN: Middle-aged male, somewhat disheveled, Alert and oriented x3, no acute distress HEENT: Normocephalic, face symmetric, pupils equal round reactive to light, extraocular movements intact, sclerae anicteric, conjunctiva clear, nares patent, oropharynx reveals an intact soft and hard palate with moist mucous membranes, dentition is fair to poor NECK: Supple, no lymphadenopathy, thyroid without enlargement or nodularity, carotids no bruits CHEST: Respiratory excursions symmetric, clear to auscultation bilaterally CV: Mildly tachycardic with regular rhythm, no murmurs, rubs, gallops, PMI nondisplaced ABD: Soft, nontender, nondistended, bowel sounds present in all 4 quadrants, no organomegaly or masses appreciated EXTR: Warm, well perfused, no clubbing/cyanosis, femoral pulses are palpable bilaterally, bilateral lower extremities and feet are warm, he has significant scaling noted to both feet, between the toes, scaling throughout the pretibial regions bilaterally, as well as open ulcerations draining serous fluid on the shins. Left lower extremity is 3+ nonpitting edema, right lower extremity 2+ nonpitting edema. Skin is hot to touch, moderate erythema bilaterally SKIN: Warm and dry, without rash NEURO: Alert and oriented x3, grossly intact PSYCH: Mood and affect is within normal limits, judgment and insight are appropriate Objective Labs 04/02/22 09:30 04/02/22 09:30 Labs: Laboratory Results - last 24 hr 04/02/22 04/02/22 04/02/22 09:30 09:30 09:30 WBC 7.9 RBC 4.60 Hgb 13.8 Hct 41.3 MCV 89.8 MCH 30.0 MCHC 33.4 RDW 13.4 Plt Count 378 Neut % (Auto) 59.9 Lymph % (Auto) 24.4 L [place] % (Auto) 8.0 Eos % (Auto) 6.4 H Baso % (Auto) 1.3 Neut # (Auto) 4700 Lymph # (Auto) 1900 [place] # (Auto) 600 Eos # (Auto) 500 H Baso # (Auto) 100 PT 11.8 INR 1.0 APTT 31 Sodium 138 Potassium 3.4 Chloride 101 Carbon Dioxide 27 BUN 10 Creatinine 0.56 L Estimated GFR > 60 BUN/Creatinine Ratio 17.9 Glucose 81 Lactate Calcium 9.4 Total Bilirubin 0.6 AST 23 ALT 19 Alkaline Phosphatase 79 C-Reactive Protein Total Protein 8.4 H Albumin 4.6 Globulin 3.8 Albumin/Globulin Ratio 1.2 Lipase 128 Procalcitonin 0.04 U Opiates 300ng/mL cut Ur Oxycodone Screen Urine Methadone Screen Ur Barbiturates Screen U Tricyclic Antidepress Ur Phencyclidine Scrn Ur Amphetamines Screen U Methamphetamines Scrn Ur MDMA Scrn (Ecstasy) U Benzodiazepines Scrn Urine Cocaine Screen U Marijuana (THC) Screen SARS-CoV-2 (PCR) 04/02/22 04/02/22 04/02/22 09:30 12:18 14:20 WBC RBC Hgb Hct MCV MCH MCHC RDW Plt Count Neut % (Auto) Lymph % (Auto) [place] % (Auto) Eos % (Auto) Baso % (Auto) Neut # (Auto) Lymph # (Auto) [place] # (Auto) Eos # (Auto) Baso # (Auto) PT INR APTT Sodium Potassium Chloride Carbon Dioxide BUN Creatinine Estimated GFR BUN/Creatinine Ratio Glucose Lactate 2.4 H 0.6 L Calcium Total Bilirubin AST ALT Alkaline Phosphatase C-Reactive Protein < 0.5 Total Protein Albumin Globulin Albumin/Globulin Ratio Lipase Procalcitonin U Opiates 300ng/mL cut Ur Oxycodone Screen Urine Methadone Screen Ur Barbiturates Screen U Tricyclic Antidepress Ur Phencyclidine Scrn Ur Amphetamines Screen U Methamphetamines Scrn Ur MDMA Scrn (Ecstasy) U Benzodiazepines Scrn Urine Cocaine Screen U Marijuana (THC) Screen SARS-CoV-2 (PCR) 04/02/22 04/02/22 14:32 15:20 WBC RBC Hgb Hct MCV MCH MCHC RDW Plt Count Neut % (Auto) Lymph % (Auto) [place] % (Auto) Eos % (Auto) Baso % (Auto) Neut # (Auto) Lymph # (Auto) [place] # (Auto) Eos # (Auto) Baso # (Auto) PT INR APTT Sodium Potassium Chloride Carbon Dioxide BUN Creatinine Estimated GFR BUN/Creatinine Ratio Glucose Lactate Calcium Total Bilirubin AST ALT Alkaline Phosphatase C-Reactive Protein Total Protein Albumin Globulin Albumin/Globulin Ratio Lipase Procalcitonin U Opiates 300ng/mL cut Negative Ur Oxycodone Screen Negative Urine Methadone Screen Negative Ur Barbiturates Screen Negative U Tricyclic Antidepress Negative Ur Phencyclidine Scrn Negative Ur Amphetamines Screen Negative U Methamphetamines Scrn Negative Ur MDMA Scrn (Ecstasy) Negative U Benzodiazepines Scrn Negative Urine Cocaine Screen Negative U Marijuana (THC) Screen Negative SARS-CoV-2 (PCR) Negative Assessment & Plan Assessment & Plan narrative: 1. Bilateral lower extremity cellulitis with chronic ulcerating wounds Patient will be admitted for IV antibiotics and pain control. Will place him on cefepime and vancomycin. MRSA swab sent and pending. No history of MRSA from the wounds themselves. If his MRSA swab is negative, will discontinue vancomycin. Will elevate his legs as much as possible when in bed. Wound care consultation recommended with both the wound care physician and wound care nursing for dressing recommendations. Ultrasound was done of the left lower extremity given his asymmetric edema. There is no evidence for DVT. He does have strong femoral pulses and his feet are quite warm, making vascular occlusion overall less likely. He does have a significant fungal component to his wounds. Would likely benefit from topical antifungal treatment. Oxycodone 10 mg q.3 hours as needed. IV Dilaudid will also be available as needed for pain. Patient would yell out with even minimal palpation while in the emergency department due to his severe. 2. Chronic lower extremity wounds with associated edema versus lymphedema Discussed with him that he will need a career change as standing on his legs all day will prohibit his legs from healing. He also expresses concern about this but agrees that he likely will need to change jobs. May benefit from lymphedema treatment when his acute issues are improved. 3. Tobacco dependence Discussed importance of complete tobacco cessation as his microvasculature will be impaired with smoking and make his wounds harder to heal. Nicotine patch has been ordered. 4. Lactic acidosis Initial lactate was 2.4. With hydration it is down to 0.6. Suspect he had mild hypovolemia. 5. Hypertension Continue lisinopril. Blood pressures are normotensive. 6. Hyperlipidemia Continue atorvastatin 7. Sinus tachycardia Patient reports he is abstinent from recreational drug use. He last used recreational drugs many years ago. Is abstinent from alcohol over the last 6 months. Suspect his tachycardia is pain related. Will monitor. Code status Full Prophylaxis Lovenox ordered Disposition Admit to acute care. Please note both wound care nurse and wound care physician will need to be called for consultation Time Spent With Patient Critical Care time: I spent a total of [] minutes of critical care time on this patient's care today; this time is exclusive of procedural time. Quality VTE Deep Vein Thrombosis/Pulmonary Embolism Present on Admission: No
[2022-04-02] MEDS: SODIUM CHLORIDE 0.9% 250 ML 21 ML IV (18:46)
[2022-04-02] MEDS: VANCOMYCIN 1,250 MG/250 ML PIGGYBACK 250 MG IV (18:46)
[2022-04-02] MEDS: SENNOSIDES 8.6 MG TABLET 17.2 MG PO (20:26)
[2022-04-02] MEDS: ATORVASTATIN 20 MG TABLET PO (20:26)
[2022-04-02] MEDS: SODIUM CHLORIDE 0.9% FLUSH 10 ML IV (20:26)
[2022-04-02] MEDS: OXYCODONE IR 10 MG TABLET PO (23:18)
--- NOTE | 2022-04-02 23:41 | PC.NURSE ---
Patient is alert and oriented although laughs at inappropriate times. Breath sounds CTA with RA sat of 99%. HRR but tachy at 104 bpm. Denies nausea. BT hypoactive but is passing flatus. Voiding per urinal; denies dysuria but states he has chronic frequency as drinks a lot of water. Is able to reposition himself in bed. Gait not assessed at present time but states he has been able to walk short distances without AD prior to admission. 2-3+ bilateral LE edema. Bilateral LE with open areas draining clear foul smelling fluid; scaly, thick skin. Complains of 5/10 throbbing pain in bilateral LE so medicated with oxycodone. Placed on contact precautions as wound cultures showing gm + cocci; patient informed of need for isolation and verbalizes understanding. Fall risk score is moderate and bed alarm is activated.
[2022-04-03] MEDS: SODIUM CHLORIDE 0.9% FLUSH 10 ML IV ×3 (01:32→20:49)
[2022-04-03] MEDS: CEFEPIME 2 GM in SODIUM CHLORIDE 0.9% 100 ML IV ×2 (01:32→14:39)
[2022-04-03 05:34] VITALS: BP 101/60; PULSE 93; RESP 19; TEMP 37.2; O2SAT 98
[2022-04-03 06:00] LABS: Add Manual Diff / Slide Review NO; Basophils Absolute Auto 100 /uL (0-100); Basophils Percent Auto 0.9 % (0-2); Eosinophils Absolute Auto 300 /uL (0-450); Eosinophils Percent Auto 3.7 % (2-4); Hematocrit 36.3 % (41-53); Hemoglobin 12.4 g/dL (13.5-17.5); Lymphocytes Absolute Auto 1700 /uL (1100-4500); Lymphocytes Percent Auto 24.5 % (25-40); Mean Corpuscular HGB Conc 34.2 % (30-36); Mean Corpuscular Hemoglobin 30.5 PG (26-34); Mean Corpuscular Volume 89.1 fL (80-100); Monocytes Absolute Auto 700 /uL (0-900); Monocytes Percent Auto 9.5 % (3-14); Neutrophils Absolute Auto 4300 /uL (1500-7000); Neutrophils Percent Auto 61.4 % (50-75); Platelet Count 303 X10^3/uL (150-400); Red Blood Cell Count 4.07 X10^6/uL (4.5-5.9); Red Cell Distribution Width 13.1 % (11.6-14.8); White Blood Cell Count 7.1 X10^3/uL (4.5-11.0)
[2022-04-03 06:09] LABS: BUN Creatinine Ratio 13.8 (6-22); Blood Urea Nitrogen 9 mg/dL (9-20); Calcium 8.9 mg/dL (8.4-10.2); Carbon Dioxide 28 mmol/L (22-32); Chloride 99 mmol/L (98-107); Estimated Glomerular Filt Rate > 60 mL/min (>60); Glucose 83 mg/dL (70-100); HEMOLYSIS < 15 (0-50); Potassium 3.9 mmol/L (3.4-5.1); Sodium 135 mmol/L (137-145)
[2022-04-03] MEDS: NICOTINE 14 PATCH 14 MG TOP (08:02)
[2022-04-03] MEDS: OXYCODONE IR 10 MG TABLET PO ×3 (08:03→23:15)
--- NOTE | 2022-04-03 08:22 | P.PN_ITS ---
Subjective Subjective Date Patient Seen: 04/03/22 Interval history: Dr. Glass wound care assessed patient today and gave wound care plan. Patient educated by myself on the etiology of his venous insufficiency and lymphedema and the necessity of LE compression. Exam Vital Signs (past 8 hours): - 04/03/22 05:34 Temperature 99 F Pulse Rate 93 H Respiratory Rate 19 Blood Pressure 101/60 Pulse Oximetry 98 Oxygen Flow Rate 0 Oxygen Delivery Method Room Air Oxygen Flow Rate 0 Narrative Exam Narrative: GEN: Middle-aged male, somewhat disheveled, Alert and oriented x3, no acute distress HEENT: Normocephalic, face symmetric, pupils equal round reactive to light, extraocular movements intact, sclerae anicteric, conjunctiva clear, nares patent, oropharynx reveals an intact soft and hard palate with moist mucous membranes, dentition is fair to poor NECK: Supple, no lymphadenopathy, thyroid without enlargement or nodularity, carotids no bruits CHEST: Respiratory excursions symmetric, clear to auscultation bilaterally CV: Mildly tachycardic with regular rhythm, no murmurs, rubs, gallops, PMI no ndisplaced ABD: Soft, nontender, nondistended, bowel sounds present in all 4 quadrants, no organomegaly or masses appreciated EXTR: Warm, well perfused, no clubbing/cyanosis, femoral pulses are palpable bilaterally, bilateral lower extremities and feet are warm, he has significant scaling noted to both feet, between the toes, scaling throughout the pretibial regions bilaterally, as well as open ulcerations draining serous fluid on the shins. Left lower extremity is 3+ nonpitting edema, right lower extremity 2+ nonpitting edema. Erythema improving. SKIN: Warm and dry, without rash NEURO: Alert and oriented x3, grossly intact PSYCH: Mood and affect is within normal limits, judgment and insight are appropriate Objective Labs 04/03/22 05:47 04/03/22 05:47 Labs: Laboratory Results - last 24 hr 04/02/22 04/02/22 04/02/22 09:30 09:30 09:30 WBC 7.9 RBC 4.60 Hgb 13.8 Hct 41.3 MCV 89.8 MCH 30.0 MCHC 33.4 RDW 13.4 Plt Count 378 Neut % (Auto) 59.9 Lymph % (Auto) 24.4 L [place] % (Auto) 8.0 Eos % (Auto) 6.4 H Baso % (Auto) 1.3 Neut # (Auto) 4700 Lymph # (Auto) 1900 [place] # (Auto) 600 Eos # (Auto) 500 H Baso # (Auto) 100 PT 11.8 INR 1.0 APTT 31 Sodium 138 Potassium 3.4 Chloride 101 Carbon Dioxide 27 BUN 10 Creatinine 0.56 L Estimated GFR > 60 BUN/Creatinine Ratio 17.9 Glucose 81 Lactate Calcium 9.4 Total Bilirubin 0.6 AST 23 ALT 19 Alkaline Phosphatase 79 C-Reactive Protein Total Protein 8.4 H Albumin 4.6 Globulin 3.8 Albumin/Globulin Ratio 1.2 Lipase 128 Procalcitonin 0.04 Nasal Screen MRSA (PCR) U Opiates 300ng/mL cut Ur Oxycodone Screen Urine Methadone Screen Ur Barbiturates Screen U Tricyclic Antidepress Ur Phencyclidine Scrn Ur Amphetamines Screen U Methamphetamines Scrn Ur MDMA Scrn (Ecstasy) U Benzodiazepines Scrn Urine Cocaine Screen U Marijuana (THC) Screen SARS-CoV-2 (PCR) 04/02/22 04/02/22 04/02/22 09:30 12:18 14:20 WBC RBC Hgb Hct MCV MCH MCHC RDW Plt Count Neut % (Auto) Lymph % (Auto) [place] % (Auto) Eos % (Auto) Baso % (Auto) Neut # (Auto) Lymph # (Auto) [place] # (Auto) Eos # (Auto) Baso # (Auto) PT INR APTT Sodium Potassium Chloride Carbon Dioxide BUN Creatinine Estimated GFR BUN/Creatinine Ratio Glucose Lactate 2.4 H 0.6 L Calcium Total Bilirubin AST ALT Alkaline Phosphatase C-Reactive Protein < 0.5 Total Protein Albumin Globulin Albumin/Globulin Ratio Lipase Procalcitonin Nasal Screen MRSA (PCR) U Opiates 300ng/mL cut Ur Oxycodone Screen Urine Methadone Screen Ur Barbiturates Screen U Tricyclic Antidepress Ur Phencyclidine Scrn Ur Amphetamines Screen U Methamphetamines Scrn Ur MDMA Scrn (Ecstasy) U Benzodiazepines Scrn Urine Cocaine Screen U Marijuana (THC) Screen SARS-CoV-2 (PCR) 04/02/22 04/02/22 04/02/22 14:32 15:20 15:50 WBC RBC Hgb Hct MCV MCH MCHC RDW Plt Count Neut % (Auto) Lymph % (Auto) [place] % (Auto) Eos % (Auto) Baso % (Auto) Neut # (Auto) Lymph # (Auto) [place] # (Auto) Eos # (Auto) Baso # (Auto) PT INR APTT Sodium Potassium Chloride Carbon Dioxide BUN Creatinine Estimated GFR BUN/Creatinine Ratio Glucose Lactate Calcium Total Bilirubin AST ALT Alkaline Phosphatase C-Reactive Protein Total Protein Albumin Globulin Albumin/Globulin Ratio Lipase Procalcitonin Nasal Screen MRSA (PCR) Negative for mrsa U Opiates 300ng/mL cut Negative Ur Oxycodone Screen Negative Urine Methadone Screen Negative Ur Barbiturates Screen Negative U Tricyclic Antidepress Negative Ur Phencyclidine Scrn Negative Ur Amphetamines Screen Negative U Methamphetamines Scrn Negative Ur MDMA Scrn (Ecstasy) Negative U Benzodiazepines Scrn Negative Urine Cocaine Screen Negative U Marijuana (THC) Screen Negative SARS-CoV-2 (PCR) Negative 04/03/22 04/03/22 05:47 05:47 WBC 7.1 RBC 4.07 L Hgb 12.4 L Hct 36.3 L MCV 89.1 MCH 30.5 MCHC 34.2 RDW 13.1 Plt Count 303 Neut % (Auto) 61.4 Lymph % (Auto) 24.5 L [place] % (Auto) 9.5 Eos % (Auto) 3.7 Baso % (Auto) 0.9 Neut # (Auto) 4300 Lymph # (Auto) 1700 [place] # (Auto) 700 Eos # (Auto) 300 Baso # (Auto) 100 PT INR APTT Sodium 135 L Potassium 3.9 Chloride 99 Carbon Dioxide 28 BUN 9 Creatinine 0.65 L Estimated GFR > 60 BUN/Creatinine Ratio 13.8 Glucose 83 Lactate Calcium 8.9 Total Bilirubin AST ALT Alkaline Phosphatase C-Reactive Protein Total Protein Albumin Globulin Albumin/Globulin Ratio Lipase Procalcitonin Nasal Screen MRSA (PCR) U Opiates 300ng/mL cut Ur Oxycodone Screen Urine Methadone Screen Ur Barbiturates Screen U Tricyclic Antidepress Ur Phencyclidine Scrn Ur Amphetamines Screen U Methamphetamines Scrn Ur MDMA Scrn (Ecstasy) U Benzodiazepines Scrn Urine Cocaine Screen U Marijuana (THC) Screen SARS-CoV-2 (PCR) [facility] [place] Medical History Benign essential HTN Hyperlipidemia Non-pressure chronic ulcer of other part of left lower leg with fat layer exposed Non-pressure chronic ulcer of other part of right lower leg with fat layer exposed Patient denies medical problems Tobacco dependence Social History household members: family Smoking Status: Current every day smoker alcohol intake: former Assessment & Plan Assessment & Plan narrative: 1. Bilateral lower extremity cellulitis with chronic ulcerating wounds Patient will be admitted for IV antibiotics and pain control. Will place him on cefepime and vancomycin. MRSA swab sent and pending. No history of MRSA from the wounds themselves. If his MRSA swab is negative, will discontinue vancomycin. Will elevate his legs as much as possible when in bed. Wound care Dr. Glass assessed patient on 04/03 and recommended Dakins soaked gauze covered with size G tubular compression stockings changed daily then to f/u in wound car e clinic. Ultrasound was done of the left lower extremity given his asymmetric edema. There is no evidence for DVT. He does have strong femoral pulses and his feet are quite warm, making vascular occlusion overall less likely. He does have a significant fungal component to his wounds. Would likely benefit from topical antifungal treatment. Oxycodone 10 mg q.3 hours as needed. IV Dilaudid will also be available as needed for pain. 2. Chronic lower extremity wounds with associated edema versus lymphedema Discussed with him that he will need a career change as standing on his legs all day will prohibit his legs from healing. He also expresses concern about this but agrees that he likely will need to change jobs. May benefit from lymphedema treatment when his acute issues are improved. 3. Tobacco dependence Discussed importance of complete tobacco cessation as his microvasculature will be impaired with smoking and make his wounds harder to heal. Nicotine patch has been ordered. 4. Lactic acidosis, resolved Initial lactate was 2.4. With hydration it is down to 0.6. Suspect he had mild hypovolemia. 5. Hypertension Continue lisinopril. Blood pressures are normotensive. 6. Hyperlipidemia Continue atorvastatin 7. Sinus tachycardia, resolved Patient reports he is abstinent from recreational drug use. He last used recreational drugs many years ago. Is abstinent from alcohol over the last 6 months. Suspect his tachycardia is pain related. Will monitor. Code status Full Prophylaxis Lovenox ordered Disposition Home in 1-2 days. Time Spent With Patient Critical Care time: I spent a total of [] minutes of critical care time on this patient's care today; this time is exclusive of procedural time. Quality VTE Deep Vein Thrombosis/Pulmonary Embolism Present on Admission: No
[2022-04-03 08:52] VITALS: BP 98/67; PULSE 96; RESP 18; TEMP 36.7; O2SAT 99
--- NOTE | 2022-04-03 13:05 | P.CONS_ITS ---
History of Present Illness Consult details Date Patient Seen: 04/03/22 Time Patient Seen: 12:15 Chief complaint: leg pain/infection Narrative: The patient is a 47-year-old male with a history of bilateral lower extremity ulcers secondary to severe lymphedema. He is routine only followed at the wound center and most recently has been receiving dressing changes with an Unna boot. The patient was last seen February 23, 2022 at which time he was started on doxycycline. Cultures from February 06, 2022 grew Staphylococcus aureus, Gram- negative bacillus, and Klebsiella oxytoca. The patient left unna boot on for approximately 3 weeks and did not returned to the wound center for follow up. He began having severe pain in both lower extremities with purulent drainage that was coming through the dressings. He denies having any fever or chills. The patient was found to have cellulitis and was admitted to the hospital for IV antibiotic therapy. Cultures done on admission are growing Gram-negative rods. Meds Home Medications and Allergies Home Medications Medication Instructions Recorded Confirmed Type lisinopril 10 mg tablet 10 mg PO DAILY #30 tabs 03/09/22 04/02/22 Rx sulfamethoxazole 800 1 tab PO BID #20 tabs 03/09/22 04/02/22 Rx mg-trimethoprim 160 mg tablet atorvastatin 20 mg tablet (Lipitor) 20 mg PO BEDTIME cholesterol #90 03/24/22 04/02/22 Rx tabs oxycodone 5 mg tablet 5 mg PO TID PRN pain #30 tabs 03/24/22 04/02/22 Rx ibuprofen 200 mg tablet 200 mg PO Q6H PRN Pain (Scale 04/02/22 04/02/22 History Score 4-6) Allergies Allergy/AdvReac Type Severity Reaction Status Date / Time acetaminophen Allergy Verified 03/08/22 08:44 bee venom protein (honey bee) Allergy Verified 03/08/22 08:44 diazepam [From Valium] Allergy Verified 03/08/22 08:44 Review of Systems Review of Systems Narrative: No fever or chills, patient reports good appetite, swelling both lower extremities Exam Vital Signs (past 8 hours): - 04/03/22 05:34 04/03/22 08:52 Temperature 99 F 98.1 F Pulse Rate 93 H 96 H Respiratory Rate 19 18 Blood Pressure 101/60 98/67 Pulse Oximetry 98 99 Oxygen Flow Rate 0 0 Oxygen Delivery Method Room Air Oxygen Flow Rate 0 Skin Other: Bilateral lower extremity lymphedema with ulcerations, moderate tenderness, mild erythema Objective Labs 04/03/22 05:47 04/03/22 05:47 Labs: Laboratory Results - last 24 hr 04/02/22 04/02/22 04/02/22 14:20 14:32 15:20 WBC RBC Hgb Hct MCV MCH MCHC RDW Plt Count Neut % (Auto) Lymph % (Auto) [place] % (Auto) Eos % (Auto) Baso % (Auto) Neut # (Auto) Lymph # (Auto) [place] # (Auto) Eos # (Auto) Baso # (Auto) Sodium Potassium Chloride Carbon Dioxide BUN Creatinine Estimated GFR BUN/Creatinine Ratio Glucose Lactate 0.6 L Calcium Nasal Screen MRSA (PCR) U Opiates 300ng/mL cut Negative Ur Oxycodone Screen Negative Urine Methadone Screen Negative Ur Barbiturates Screen Negative U Tricyclic Antidepress Negative Ur Phencyclidine Scrn Negative Ur Amphetamines Screen Negative U Methamphetamines Scrn Negative Ur MDMA Scrn (Ecstasy) Negative U Benzodiazepines Scrn Negative Urine Cocaine Screen Negative U Marijuana (THC) Screen Negative SARS-CoV-2 (PCR) Negative 04/02/22 04/03/22 04/03/22 15:50 05:47 05:47 WBC 7.1 RBC 4.07 L Hgb 12.4 L Hct 36.3 L MCV 89.1 MCH 30.5 MCHC 34.2 RDW 13.1 Plt Count 303 Neut % (Auto) 61.4 Lymph % (Auto) 24.5 L [place] % (Auto) 9.5 Eos % (Auto) 3.7 Baso % (Auto) 0.9 Neut # (Auto) 4300 Lymph # (Auto) 1700 [place] # (Auto) 700 Eos # (Auto) 300 Baso # (Auto) 100 Sodium 135 L Potassium 3.9 Chloride 99 Carbon Dioxide 28 BUN 9 Creatinine 0.65 L Estimated GFR > 60 BUN/Creatinine Ratio 13.8 Glucose 83 Lactate Calcium 8.9 Nasal Screen MRSA (PCR) Negative for mrsa U Opiates 300ng/mL cut Ur Oxycodone Screen Urine Methadone Screen Ur Barbiturates Screen U Tricyclic Antidepress Ur Phencyclidine Scrn Ur Amphetamines Screen U Methamphetamines Scrn Ur MDMA Scrn (Ecstasy) U Benzodiazepines Scrn Urine Cocaine Screen U Marijuana (THC) Screen SARS-CoV-2 (PCR) [facility] Medical History Benign essential HTN Hyperlipidemia Non-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-pressure chronic ulcer of other part of right lower leg with fat layer exposed Patient denies medical problems Tobacco dependence Social History household members: family Tobacco & Substance Use Smoking Status: Current every day smoker alcohol intake: former Assessment & Plan Assessment and plan (1) Cellulitis of both lower extremities: Status: Acute (2) Non-pressure chronic ulcer of other part of left lower leg with fat layer exposed: Status: Acute (3) Non-pressure chronic ulcer of other part of right lower leg with fat layer exposed: Status: Acute Plan Recommend minimal activity, elevation of both lower extremities, daily dressing changes with Dakin's soaked gauze and Tubigrip compression stockings size G to both lower extremities. Follow up at wound center after discharge. Time Spent With Patient Critical Care time: I spent a total of [] minutes of critical care time on this patient's care today; this time is exclusive of procedural time.
--- NOTE | 2022-04-03 16:03 | CM.DANOTE ---
Addendum entered by Shasha Fernandez R.N. 04/03/22 16:24: Shasha Fernandez RN Case Manager Original Note: DCP: Assessment: 47 yo male admitted to hospitalist on 04/02/2022 with c/o increasing pain in his bilat le's. He is noted to have Bilateral loser extremity cellulitis with ulcerating wounds. He has hx of HTN, Hyperlipidemia, Sinus tachycardia. This CM reviewed chart. PCP: Becky Newton Insurance: [employer] This CM met with pt in his room. He is a+ox4 and sitting up in his bed. Introduced self and role. Pt confirms that he lives in [place] with his Mother and Father. He gave permission for this CM to contact his Mother or Father and communicate any care needs. Pt reports that he does not drive. He states that he has not driven for years and that he has not needed to because he has always worked close to home within walking distance. Pt states that he is set up with the wound care clinic at [facility], they are the only ones I trust he stated. Pt is in agreement to go home when medically stable with home health to support with dressing changes under the wound clinic's supervision. Plan: Home with Home Health when Medically Stable. 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 No History Provided By Patient Has Patient been admitted in last 30 No days? Prior Living Arrangements House Comment Pt reports that he lives with his parents Household Members family Comment Pt lives with his parents Type of transporation used prior to Relies on Others admit Comment Pt reports that he has always worked close enough to places that he has worked to walk and that he has not needed to drive Independent with ADL's Yes Is patient alert and oriented? Yes Caregiver for Another No Patient/Family Preference Home with Home Health Barriers to Discharge No Discharge Plan Home with Home Health Transportation Arrangement Mother can provide transportation Referrals Initiated Home Health If patient plan is home with home health No: not as of yet. in process : Has signed face to face form been completed? Whiteboard Updated in Patient Room with Yes name and ext. # of Electric Motor Repair Supervisor Review Status In Process Next Review Type Continued Stay Review
[2022-04-03 16:06] VITALS: BP 103/59; PULSE 87; RESP 18; TEMP 36.6; O2SAT 99
[2022-04-03] MEDS: SODIUM HYPOCHLORITE 473 ML SOLUTION TOP (19:15)
[2022-04-03] MEDS: HYDROMORPHONE 0.5 MG INJ IV (19:15)
[2022-04-03] MEDS: ATORVASTATIN 20 MG TABLET PO (20:48)
[2022-04-03] MEDS: SENNOSIDES 8.6 MG TABLET 17.2 MG PO (20:48)
[2022-04-03 21:26] VITALS: BP 106/60; PULSE 86; RESP 18; TEMP 37; O2SAT 100
--- NOTE | 2022-04-03 23:29 | PC.NURSE ---
Patient is alert and oriented. Breath sounds CTA with RA sat of 100%. HRR. Denies nausea. BT present and is passing flatus. Denies dysuria, frequency or urgency and is voided per urinal. Is able to move himself in bed. Has not been out of bed as yet but reports he has difficulty with ambulation but does not use and assistive device. At start of shift bilateral LE were wrapped w/Dakins soaked gauze and tubular compression stockings applied. ROLL RECLAIMERHernandez [place], was informed that G size was not available and so F size was applied. Patient states legs are feeling better now that they are covered and has no tingling or numbness. Feet are warm and has good pulses. Legs are kept elevated on pillows. States pain is being better managed; did received IV Dilaudid prior to dressing change and pain is now back to 5/10 (throbbing pain) so medicated with oxycodone. Is on contact isolation until wound culture final is back. Fall risk score is moderate and bed alarm is activated.
[2022-04-04] MEDS: SODIUM CHLORIDE 0.9% 250 ML 21 ML IV (01:28)
[2022-04-04] MEDS: SODIUM CHLORIDE 0.9% FLUSH 10 ML IV ×2 (01:29→09:11)
[2022-04-04] MEDS: CEFEPIME 2 GM in SODIUM CHLORIDE 0.9% 100 ML IV (01:29)
[2022-04-04 02:24] VITALS: BP 109/60; PULSE 91; RESP 18; TEMP 37.1; O2SAT 98
[2022-04-04] MEDS: OXYCODONE IR 10 MG TABLET PO ×2 (07:31→11:37)
--- NOTE | 2022-04-04 07:32 | PM.PN.1 ---
Exam Vital Signs (past 8 hours): - 04/04/22 02:24 Temperature 98.8 F Pulse Rate 91 H Respiratory Rate 18 Blood Pressure 109/60 Pulse Oximetry 98 Oxygen Flow Rate 0 Oxygen Delivery Method Room Air Oxygen Flow Rate 0 Narrative Exam Narrative: GEN: Middle-aged male, somewhat disheveled, Alert and oriented x3, no acute distress HEENT: Normocephalic, face symmetric, pupils equal round reactive to light, extraocular movements intact, sclerae anicteric, conjunctiva clear, nares patent, oropharynx reveals an intact soft and hard palate with moist mucous membranes, dentition is fair to poor NECK: Supple, no lymphadenopathy, thyroid without enlargement or nodularity, carotids no bruits CHEST: Respiratory excursions symmetric, clear to auscultation bilaterally CV: Mildly tachycardic with regular rhythm, no murmurs, rubs, gallops, PMI nondisplaced ABD: Soft, nontender, nondistended, bowel sounds present in all 4 quadrants, no organomegaly or masses appreciated EXTR: Warm, well perfused, no clubbing/cyanosis, femoral pulses are palpable bilaterally, bilateral lower extremities and feet are warm, he has significant scaling noted to both feet, between the toes, scaling throughout the pretibial regions bilaterally, as well as open ulcerations draining serous fluid on the shins. Left lower extremity is 3+ nonpitting edema, right lower extremity 2+ nonpitting edema. Erythema improving. SKIN: Warm and dry, without rash NEURO: Alert and oriented x3, grossly intact PSYCH: Mood and affect is within normal limits, judgment and insight are appropriate Objective Labs 04/03/22 05:47 04/03/22 05:47 [facility] Medical History Benign essential HTN Hyperlipidemia Non-pressure chronic ulcer of other part of left lower leg with fat layer exposed Non-pressure chronic ulcer of other part of right lower leg with fat layer exposed Patient denies medical problems Tobacco dependence Social History household members: family Smoking Status: Current every day smoker alcohol intake: former Assessment & Plan Assessment & Plan narrative: 1. Bilateral lower extremity cellulitis with chronic ulcerating wounds Patient will be admitted for IV antibiotics and pain control. Will place him on cefepime and vancomycin. MRSA swab sent and pending. No history of MRSA from the wounds themselves. If his MRSA swab is negative, will discontinue vancomycin. Will elevate his legs as much as possible when in bed. Wound care Dr. Glass assessed patient on 04/03 and recommended Dakins soaked gauze covered with size G tubular compression stockings changed daily then to f/u in wound care clinic. Ultrasound was done of the left lower extremity given his asymmetric edema. There is no evidence for DVT. He does have strong femoral pulses and his feet are quite warm, making vascular occlusion overall less likely. He does have a significant fungal component to his wounds. Would likely benefit from topical antifungal treatment. Oxycodone 10 mg q.3 hours as needed. IV Dilaudid will also be available as needed for pain. 2. Chronic lower extremity wounds with associated edema versus lymphedema Discussed with him that he will need a career change as standing on his legs all day will prohibit his legs from healing. He also expresses concern about this but agrees that he likely will need to change jobs. May benefit from lymphedema treatment when his acute issues are improved. 3. Tobacco dependence Discussed importance of complete tobacco cessation as his microvasculature will be impaired with smoking and make his wounds harder to heal. Nicotine patch has been ordered. 4. Lactic acidosis, resolved Initial lactate was 2.4. With hydration it is down to 0.6. Suspect he had mild hypovolemia. 5. Hypertension Continue lisinopril. Blood pressures are normotensive. 6. Hyperlipidemia Continue atorvastatin 7. Sinus tachycardia, resolved Patient reports he is abstinent from recreational drug use. He last used recreational drugs many years ago. Is abstinent from alcohol over the last 6 months. Suspect his tachycardia is pain related. Will monitor. Code status Full Prophylaxis Lovenox ordered Disposition Home in 1-2 days. Time Spent With Patient Critical Care time: I spent a total of [] minutes of critical care time on this patient's care today; this time is exclusive of procedural time. Quality VTE Deep Vein Thrombosis/Pulmonary Embolism Present on Admission: No
[2022-04-04 08:49] VITALS: BP 119/63; PULSE 88; RESP 16; TEMP 36.9; O2SAT 99
[2022-04-04 09:10] VITALS: BP 119/63
[2022-04-04] MEDS: NICOTINE 14 PATCH 14 MG TOP (09:10)
[2022-04-04] MEDS: lisinopriL 10 MG TABLET PO (09:10)
[2022-04-04] MEDS: SODIUM HYPOCHLORITE 473 ML SOLUTION TOP (09:12)
--- NOTE | 2022-04-04 11:39 | PM.DS.1 ---
History of Present Illness History of Present Illness Date Patient Seen: 04/04/22 Chief complaint: leg pain/infection Narrative: 47-year-old gentleman with hypertension, hyperlipidemia, GERD/PUD, chronic right shoulder pain related to dislocations, chronic knee pain related to dislocations and osteoarthritis who presented to the emergency department with worsening leg swelling and ulceration. 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 He notes around November of 2021 he developed lower extremity swelling and skin scaling. He states it progressively worsened and he ultimately came to the emergency department in February for evaluation. Of note, he was seen in the emergency department in early November after a fall with rib contusions. At that time he did not complain of any injury or rash to his legs. He was seen in the emergency department on February 06. He reported during his February 06 visit that he would had some abrasions on his legs after his fall in November. He reported in February that his legs were fine until 2 weeks prior to presentation. He gave a 2 week history of increasing edema, crusting, and pain. He was given a prescription for Keflex and hydrocodone. He was encouraged to do wet to dry dressings. He was also given a referral to wound care. He followed up in the emergency department the next day. He was reporting improvement at that time. Wound cultures were positive for staph aureus and Gram-negative bacilli. He returned to the emergency department on February 08 complaining of pain with dressing changes. Dressings were changed and he was given recommendations once again for wound care appointment. He was seen by wound care on February 10. They sent him to the ED for pain management afterwards. He is continued following with the wound care clinic since that time. He established with Becky Newton, primary care, earlier this month. She gave him 20 oxycodone to be used only during dressing changes. She encouraged use of acetaminophen/ibuprofen for pain mgmt. A1c was done which was within normal limits. He last saw the wound care clinic team approximately 2 weeks ago. At that time they put impression dressing on. Due to significant pain with dressing changes, he had not changed his dressings in 2 weeks' time. He presented the emergency department today complaining of increasing pain. No fevers or chills. No nausea vomiting. Abdominal pain. He was noted have foul-smelling dressings and leg wounds. Dressings were removed and he was found to have evidence of bilateral lower extremity cellulitis. White blood cell count was normal. Blood wound cultures were done and are pending. CRP was normal. He received cefepime and vancomycin and admission was recommended. Patient reports he was smoking a pack per day but is primary care provider encouraged him to cut down. He is now down to 8 cigarettes a day from over 1 pack per day. 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 He expresses concern about being able to work in his current position with his leg wounds and swelling. He has a remote history of substance use, no previous IV drug use. No history of MRSA. Prior cultures from the legs revealed Morganella morganii, Enterobacter, and MSSA. Patient reports he has been prescribed Keflex on 2 occasions. Most recently he was on Bactrim. He states he has been taking that over the last month and it is an active prescription currently. Discharge Providers Provider Date of admission: 04/02/22 10:58 Discharge Date: 04/04/22 Primary care physician: Becky Newton DO Consults: 04/02/22 15:15 Consult to Physician Routine Comment: Consulting Provider: Suman Glass Reason for consultation: Chronic leg wounds Has provider been notified: No 04/03/22 08:30 Consult to Wound Care Routine Comment: Consulting Provider: [facility] Discharge provider: Kristopher Choudhury DO Summary Hospital Course Discharge Diagnosis: 1. Bilateral lower extremity cellulitis with chronic ulcerating wounds, pseudomonas positive wound cultures Patient will be admitted for IV antibiotics and pain control. Will place him on cefepime and vancomycin. MRSA swab sent and pending. No history of MRSA from the wounds themselves. If his MRSA swab is negative, will discontinue vancomycin. Will elevate his legs as much as possible when in bed. Wound care Dr. Glass assessed patient on 04/03 and recommended Dakins soaked gauze covered with size G tubular compression stockings changed daily then to f/u in wound care clinic. Ultrasound was done of the left lower extremity given his asymmetric edema. There is no evidence for DVT. He does have strong femoral pulses and his feet are quite warm, making vascular occlusion overall less likely. He does have a significant fungal component to his wounds. Would likely benefit from topical antifungal treatment. Oxycodone 10 mg q.3 hours as needed. IV Dilaudid will also be available as needed for pain. Wound culture grew pseudomonas susceptible to quinolones so patient placed on levaquin po for 5 days at discharge after receiving 3 days of cefepime. He will continue with dakins guaze plus tubular wraps with home health and f/u with wound clinic. 2. Chronic lower extremity wounds with associated edema versus lymphedema Discussed with him that he will need a career change as standing on his legs all day will prohibit his legs from healing. He also expresses concern about this but agrees that he likely will need to change jobs. May benefit from lymphedema treatment when his acute issues are improved. 3. Tobacco dependence Discussed importance of complete tobacco cessation as his microvasculature will be impaired with smoking and make his wounds harder to heal. Nicotine patch has been ordered. 4. Lactic acidosis, resolved Initial lactate was 2.4. With hydration it is down to 0.6. Suspect he had mild hypovolemia. 5. Hypertension Continue lisinopril. Blood pressures are normotensive. 6. Hyperlipidemia Continue atorvastatin 7. Sinus tachycardia, resolved Patient reports he is abstinent from recreational drug use. He last used recreational drugs many years ago. Is abstinent from alcohol over the last 6 months. Suspect his tachycardia is pain related. Will monitor. Time Spent with Patient Time spent: Greater than 30 minutes Exam Vital Signs (past 8 hours): - 04/04/22 08:49 04/04/22 09:10 Temperature 98.4 F Pulse Rate 88 Respiratory Rate 16 Blood Pressure 119/63 119/63 Pulse Oximetry 99 Oxygen Flow Rate 0 Oxygen Delivery Method Room Air Oxygen Flow Rate 0 Narrative Exam Narrative: GEN: Middle-aged male, somewhat disheveled, Alert and oriented x3, no acute distress HEENT: Normocephalic, face symmetric, pupils equal round reactive to light, extraocular movements intact, sclerae anicteric, conjunctiva clear, nares patent, oropharynx reveals an intact soft and hard palate with moist mucous membranes, dentition is fair to poor NECK: Supple, no lymphadenopathy, thyroid without enlargement or nodularity, carotids no bruits CHEST: Respiratory excursions symmetric, clear to auscultation bilaterally CV: Mildly tachycardic with regular rhythm, no murmurs, rubs, gallops, PMI nondisplaced ABD: Soft, nontender, nondistended, bowel sounds present in all 4 quadrants, no organomegaly or masses appreciated EXTR: Warm, well perfused, no clubbing/cyanosis, femoral pulses are palpable bilaterally, bilateral lower extremities and feet are warm, he has significant scaling noted to both feet, between the toes, scaling throughout the pretibial regions bilaterally, as well as open ulcerations draining serous fluid on the shins. Left lower extremity is 3+ nonpitting edema, right lower extremity 2+ nonpitting edema. Erythema improving. SKIN: Warm and dry, without rash NEURO: Alert and oriented x3, grossly intact PSYCH: Mood and affect is within normal limits, judgment and insight are appropriate Objective Labs 04/03/22 05:47 04/03/22 05:47 [facility] Medical History Benign essential HTN Hyperlipidemia Non-pressure chronic ulcer of other part of left lower leg with fat layer exposed Non-pressure chronic ulcer of other part of right lower leg with fat layer exposed Patient denies medical problems Tobacco dependence Social History household members: family Smoking Status: Current every day smoker alcohol intake: former Discharge Plan Discharge Plan Patient Disposition: Home Health Service Discharge orders & Medications Prescriptions: New levofloxacin 750 mg tablet 750 mg PO DAILY 5 Days Qty: 5 0RF Rx Instructions: start on 04/04 after you pick it up Continued lisinopril 10 mg tablet 10 mg PO DAILY Qty: 30 11RF atorvastatin [Lipitor] 20 mg tablet 20 mg PO BEDTIME Qty: 90 3RF ibuprofen 200 mg Tablet 200 mg PO Q6H PRN (Reason: Pain (Scale Score 4-6)) oxycodone 5 mg tablet 5 mg PO TID PRN (Reason: pain) Qty: 30 0RF Discontinued sulfamethoxazole-trimethoprim 800-160 mg tablet 1 tab PO BID Qty: 20 0RF Follow up/Referrals: Suman Glass MD [Physician] - 1 Week Becky Newton DO [Primary Care Provider] - 2 Weeks Visit Report/Discharge Packet Instructions: Chronic Venous Insufficiency, DI for Lymphedema, Levofloxacin Stand Alone Forms: Patient Portal/API, Stroke Signs & Symptoms Discharge Data Primary Care Provider: Becky Newton Quality VTE Deep Vein Thrombosis/Pulmonary Embolism Present on Admission: No
--- NOTE | 2022-04-04 13:08 | CM.DPC ---
DCP Discharge Home with Wound Care Per MD, pt is medically stable to d/c home with family assist and ongoing wound care needs and feels HH would also be beneficial in combination with [facility]. Per Wound MD and Hospitalist, recommend once daily or once every other day wound dressing changes. VIMAL met bedside with pt and father while RN doing dressing changes and explained role and pt confirms he is still established with [facility] and per RN has next appointment in about a week and dressing changes are not extensive but painful for the pt so he needs to be medicated prior. Pt confirms he has no hx of HH as he typically was working or in [place] and did not want HH but now feels it would be beneficial and pt is fairly homebound at baseline now that he cannot work etc.. VIMAL provided the HH Choice list via Ipad and paper but preference is HH that is willing to accept [facility] for wound care and can start the soonest. VIMAL called [facility] and they are willing to review and Jose is willing to advocate for accepting the referral and SW faxed to the office for review and aware that pt is to d/c today and will try to prioritize. IVMAL called [facility] and they are willing to review as well and can sometimes accept [facility] and will review today, SW faxed referral. Plan: F2F and HH orders completed and awaiting for return call from [facility] and [facility] to confirm a HH agency. Pt to d/c home via father POV and VIMAL to keep them updated on HH agency reviews. LAUREN Bone
--- NOTE | 2022-04-04 13:08 | PC.NURSE ---
Dressings to bilat lower ext. removed and replaced as ordered. Very painful for Pt. RN assisting dsg change-Sadia RN assisted with last night's dressing change and states legs are looking a bit better-Pt agreed. IV's removed. Went over d/c instructions with - Pt and Father-discussed d/c meds, time of last dose, reviewed stroke education, discussed drinking plenty of fluids to prevent constipation or dehydration secondary to narcotic use. No driving while on narcotics and until cleared by his MD, take your full prescription of abx as ordered. Home parker RN being set up for dressing changes. Pt to follow up with wound care in 1 week and his PCP in 2 weeks. Pt denied further questions and is ready to be taken out as soon as he is dressed and ready.
--- NOTE | 2022-04-04 13:34 | PC.NURSE ---
Pt out via w/c by PROFESSOR OF PSYCHOLOGY to POV with father and all belongings.
--- NOTE | 2022-04-05 09:00 | CM.DPC ---
DCP HH planning SW had made HH referrals to [facility], [facility], [facility] yesterday 04/04/22 as pt did not have a HH preference and his insurance, [employer], is a barrier to HH especially for RN for wound care which is what pt primarily needs HH for. [facility]- reviewed and unfortunately cannot accept referral due to documented hx of some non-compliance after [facility] placement. [facility]- willing to review, uncertain if they will be able to accept but faxed clinicals. [facility]- faxed and left msg. SW called this morning and left msg for [facility] regarding their review. SW called [facility] and spoke to Rozina and discussed pt situation and pt also established with upcoming appt at [facility] in a week and they are willing to accept and likely can open tomorrow 04/06/22 for senior care assistant and SW faxed completed F2F, orders, and d/c summary. Carly Stovall, CUSTOMS DIRECTOR
== END 2022-04-04 13:34 | disposition home health service (06) | DRG 383 ==
LOC: ED 10:43 → AC 10:59
PROVIDERS: Admitting Provider Family Medicine; Emergency Provider Emergency Medicine; PCP Family Medicine; Referring Provider Emergency Medicine; Visit Provider Family Medicine
DX: L03.116 Cellulitis of left lower limb (principal); L03.115 Cellulitis of right lower limb; E87.20 Acidosis, unspecified; I10 Essential (primary) hypertension; E78.5 Hyperlipidemia, unspecified; R00.0 Tachycardia, unspecified; L97.822 Non-pressure chronic ulcer of other part of left lower leg with fat layer exposed; L97.812 Non-pressure chronic ulcer of other part of right lower leg with fat layer exposed; B96.5 Pseudomonas (aeruginosa) (mallei) (pseudomallei) as the cause of diseases classified elsewhere; F17.210 Nicotine dependence, cigarettes, uncomplicated; Z20.822 Contact with and (suspected) exposure to COVID-19
CPT/HCPCS: 36415; 71045; 80048; 80053; 80305; 81003; 83605; 83690; 84145; 85025; 85610; 85730; 86140; 87040; 87070; 87077; 87186; 87205; 87635; 87797; 93005; 93971; 96365; 96367; 96375; 96376; 99232; 99284; C9803; J0692; J1170; J1650; J2405

== ENCOUNTER → 2022-05-31 08:38 | Outpatient (CLI) | payer OTHER, MEDICAID, SELFPAY ==
[2022-04-02 11:31] VITALS: BMI 30.8
== END ==
PROVIDERS: PCP Family Medicine; Referring Provider Emergency Medicine; Visit Provider Surgery
DX: I89.0 Lymphedema, not elsewhere classified (principal); L97.812 Non-pressure chronic ulcer of other part of right lower leg with fat layer exposed; L97.822 Non-pressure chronic ulcer of other part of left lower leg with fat layer exposed; L97.522 Non-pressure chronic ulcer of other part of left foot with fat layer exposed; R60.0 Localized edema
CPT/HCPCS: 97597; 97598; 99214; 99215

== ENCOUNTER → 2022-06-07 08:54 | Outpatient (CLI) | payer OTHER, MEDICAID, SELFPAY ==
[2022-04-02 11:31] VITALS: BMI 30.8
== END ==
PROVIDERS: PCP Family Medicine; Referring Provider Family Medicine; Visit Provider Nurse Practitioner Family
DX: I89.0 Lymphedema, not elsewhere classified (principal); L97.812 Non-pressure chronic ulcer of other part of right lower leg with fat layer exposed; L97.822 Non-pressure chronic ulcer of other part of left lower leg with fat layer exposed; R60.0 Localized edema; F17.210 Nicotine dependence, cigarettes, uncomplicated
CPT/HCPCS: 11042; 11045; 29581; 99212; 99213

== ENCOUNTER → 2022-06-14 08:36 | Outpatient (CLI) | payer OTHER, MEDICAID, SELFPAY ==
[2022-04-02 11:31] VITALS: BMI 30.8
== END ==
PROVIDERS: PCP Family Medicine; Referring Provider Family Medicine; Visit Provider Surgery
DX: I89.0 Lymphedema, not elsewhere classified (principal); L97.812 Non-pressure chronic ulcer of other part of right lower leg with fat layer exposed; L97.822 Non-pressure chronic ulcer of other part of left lower leg with fat layer exposed; R60.0 Localized edema; Z91.198 Patient's noncompliance with other medical treatment and regimen for other reason
CPT/HCPCS: 87070; 87077; 87186; 87205; 97597; 97598; 99213

== ENCOUNTER → 2022-06-21 08:49 | Outpatient (CLI) | payer OTHER, MEDICAID, SELFPAY ==
[2022-04-02 11:31] VITALS: BMI 30.8
== END ==
PROVIDERS: PCP Family Medicine; Referring Provider Family Medicine; Visit Provider Surgery
DX: I89.0 Lymphedema, not elsewhere classified (principal); L97.812 Non-pressure chronic ulcer of other part of right lower leg with fat layer exposed; L97.822 Non-pressure chronic ulcer of other part of left lower leg with fat layer exposed
CPT/HCPCS: 97597; 97598

== ENCOUNTER → 2022-06-28 08:45 | Outpatient (CLI) | payer OTHER, MEDICAID, SELFPAY ==
[2022-04-02 11:31] VITALS: BMI 30.8
== END ==
PROVIDERS: PCP Family Medicine; Referring Provider Family Medicine; Visit Provider Nurse Practitioner Family
DX: I89.0 Lymphedema, not elsewhere classified (principal); L97.812 Non-pressure chronic ulcer of other part of right lower leg with fat layer exposed; L97.822 Non-pressure chronic ulcer of other part of left lower leg with fat layer exposed; M79.672 Pain in left foot; M79.671 Pain in right foot; R60.0 Localized edema
CPT/HCPCS: 29580

== ENCOUNTER → 2022-07-05 09:08 | Outpatient (CLI) | payer OTHER, MEDICAID, SELFPAY ==
[2022-04-02 11:31] VITALS: BMI 30.8
== END ==
PROVIDERS: PCP Family Medicine; Referring Provider Emergency Medicine; Visit Provider Surgery
DX: I89.0 Lymphedema, not elsewhere classified (principal); L97.812 Non-pressure chronic ulcer of other part of right lower leg with fat layer exposed; L97.822 Non-pressure chronic ulcer of other part of left lower leg with fat layer exposed; R60.0 Localized edema; Z91.198 Patient's noncompliance with other medical treatment and regimen for other reason
CPT/HCPCS: 15271; 97597; 99213; Q4196

== ENCOUNTER → 2022-07-12 08:40 | Outpatient (CLI) | payer OTHER, MEDICAID, SELFPAY ==
[2022-04-02 11:31] VITALS: BMI 30.8
== END ==
PROVIDERS: PCP Family Medicine; Referring Provider Emergency Medicine; Visit Provider Surgery
DX: I89.0 Lymphedema, not elsewhere classified (principal); L97.812 Non-pressure chronic ulcer of other part of right lower leg with fat layer exposed; L97.822 Non-pressure chronic ulcer of other part of left lower leg with fat layer exposed; R60.0 Localized edema
CPT/HCPCS: 11042; 15271; Q4196

== ENCOUNTER → 2022-07-19 13:21 | Outpatient (CLI) | payer OTHER, MEDICAID, SELFPAY ==
[2022-04-02 11:31] VITALS: BMI 30.8
== END ==
PROVIDERS: PCP Family Medicine; Referring Provider Family Medicine; Visit Provider Surgery
DX: L97.812 Non-pressure chronic ulcer of other part of right lower leg with fat layer exposed (principal); L97.822 Non-pressure chronic ulcer of other part of left lower leg with fat layer exposed; I89.0 Lymphedema, not elsewhere classified
CPT/HCPCS: 15271; 29580; 97597; 99213; Q4196

== ENCOUNTER → 2022-08-03 10:37 | Outpatient (CLI) | payer OTHER, MEDICAID, SELFPAY ==
[2022-04-02 11:31] VITALS: BMI 30.8
== END ==
PROVIDERS: PCP Family Medicine; Referring Provider Family Medicine; Visit Provider Surgery
DX: I89.0 Lymphedema, not elsewhere classified (principal); L97.812 Non-pressure chronic ulcer of other part of right lower leg with fat layer exposed; R60.0 Localized edema; Z72.0 Tobacco use
CPT/HCPCS: 29580; 99212; 99213

== ENCOUNTER → 2022-08-17 08:44 | Outpatient (CLI) | payer OTHER, MEDICAID, SELFPAY ==
[2022-04-02 11:31] VITALS: BMI 30.8
== END ==
PROVIDERS: PCP Family Medicine; Referring Provider Emergency Medicine; Visit Provider Surgery
DX: I89.0 Lymphedema, not elsewhere classified (principal); L97.812 Non-pressure chronic ulcer of other part of right lower leg with fat layer exposed; L97.822 Non-pressure chronic ulcer of other part of left lower leg with fat layer exposed; F17.210 Nicotine dependence, cigarettes, uncomplicated
CPT/HCPCS: 99213

== ENCOUNTER → 2022-09-07 09:06 | Outpatient (CLI) | payer OTHER, MEDICAID, SELFPAY ==
[2022-04-02 11:31] VITALS: BMI 30.8
== END ==
PROVIDERS: PCP Family Medicine; Referring Provider Emergency Medicine; Visit Provider Surgery
DX: I89.0 Lymphedema, not elsewhere classified (principal); Z87.2 Personal history of diseases of the skin and subcutaneous tissue
CPT/HCPCS: 99211; 99213